=== PATIENT | female | born 1980 | race Caucasian/White ===

== ENCOUNTER → 2019-09-25 17:27 | Outpatient (CLI) | payer BC, SELFPAY ==
--- NOTE | ~2019-09-25 | MM_ITS ---
EXAMINATION: MM screening amita BI w abe HISTORY: Screening mammogram TECHNIQUE: Craniocaudal and mediolateral oblique 3-D tomosynthesis images were obtained and synthetic 2-D images were generated. CAD analysis was submitted and interpreted. COMPARISON: None, baseline BREAST PARENCHYMAL COMPOSITION: The breasts are almost entirely fatty. FINDINGS: RIGHT BREAST: An asymmetry is present in the subareolar aspect of the right breast on the craniocauda l view.. LEFT BREAST: There is no evidence of suspicious mass, calcification, or architectural distortion to s uggest malignancy. IMPRESSION: 1. Subareolar right breast asymmetry on the craniocaudal view. 2. Additional mammographic views and possible breast ultrasound are recommended to evaluate for amy elena and establish a baseline given that this is the first mammographic examination. BI-RADS Category 0: Incomplete: Needs additional imaging evaluation. Reviewed, dictated and finalized at location A. F COINS INSPECTOR IMPRESSION: 1. Subareolar right breast asymmetry on the craniocaudal view. 2. Additional mammographic views and possible breast ultrasound are recommended to evaluate for malignancy and establish a baseline given that this is the fir st mammographic examination. BI-RADS Category 0: Incomplete: Needs additional imaging evaluation.
== END ==
PROVIDERS: Visit Provider Advanced Practice Midwife
DX: Z12.31 Encounter for screening mammogram for malignant neoplasm of breast (principal); R92.8 Other abnormal and inconclusive findings on diagnostic imaging of breast
CPT/HCPCS: 77063; 77067

== ENCOUNTER → 2019-10-23 08:15 | Outpatient (CLI) | payer BC, SELFPAY ==
--- NOTE | ~2019-10-23 | MM_ITS ---
EXAMINATION: MM diagnostic mammo unilat RT HISTORY: Follow-up right breast asymmetry TECHNIQUE: Additional 3-D tomosynthesis images of the right breast were performed and synthetic 2-D i mages were generated. CAD analysis was submitted and interpreted. COMPARISON: 09/25/2019 FINDINGS: Breast composed of scattered areas of fibroglandular density. There are no suspicious talisha s, calcifications or architectural distortion in the right breast to suggest malignancy. IMPRESSION: 1. No mammographic evidence for malignancy in the right breast. 2. Routine digital bilateral screening mammogram submitted for review. CAD analysis performed and in terpreted. BI-RADS Category 1: Negative Reviewed, dictated and finalized at location A. IMPRESSION: 1. No mammographic evidence for malignancy in the right breast. 2. Routine digital bilateral screening mammogram submitted for review. CAD brittney lysis performed and interpreted. BI-RADS Category 1: Negative
== END ==
PROVIDERS: PCP Family Medicine; Visit Provider Advanced Practice Midwife
DX: R92.8 Other abnormal and inconclusive findings on diagnostic imaging of breast (principal)
CPT/HCPCS: 77065

== ENCOUNTER → 2020-12-02 15:20 | Outpatient (CLI) | payer BC, SELFPAY ==
--- NOTE | ~2020-12-02 | MM_ITS ---
EXAMINATION: MM screening amita BI w abe HISTORY: Screening mammogram TECHNIQUE: Craniocaudal and mediolateral oblique 3-D tomosynthesis images were obtained and synthetic 2-D images were generated. CAD analysis was submitted and interpreted. COMPARISON: 10/23/2019 diagnostic right mammogram 09/25/2019 bilateral digital screening mammogram BREAST PARENCHYMAL COMPOSITION: The breasts are almost entirely fatty. FINDINGS: There is no evidence of suspicious mass, calcification, or architectural distortion to sugg est malignancy in either breast. There has been no suspicious interval change. IMPRESSION: 1. No mammographic evidence of malignancy. 2. Recommend routine screening mammography in one year. BI-RADS Category 1: Negative Reviewed, dictated and finalized at location A.
== END ==
PROVIDERS: Visit Provider Nurse Practitioner Obstetrics & Gynecology
DX: Z12.31 Encounter for screening mammogram for malignant neoplasm of breast (principal)
CPT/HCPCS: 77063; 77067

== ENCOUNTER → 2021-06-27 07:17 | Outpatient (CLI) | payer BC, SELFPAY ==
--- NOTE | ~2021-06-27 | MR_ITS ---
EXAMINATION: MR ankle RT wo con DATE: 06/27/2021 08:16 INDICATION: Chronic plantar fasciitis with chronic plantar right foot pain TECHNIQUE: Magnetic resonance imaging (MRI) of the right mid and hindfoot including the ankle was per formed without intravenous contrast. Sequences included sagittal, coronal, and axial proton-density w eighted fast spin echo without and with fat saturation. COMPARISON: None. FINDINGS: Medial ankle ligaments: Deep and superficial deltoid ligaments as well as the spring ligament are normal. Lateral ankle ligaments: The anterior and posterior inferior tibiofibular ligaments are normal. The anterior talofibular, calc aneofibular and posterior talofibular ligaments are normal. Tendons: Achilles tendon is normal. The peroneus longus and brevis tendons are normal. The tibialis anterior a nd extensor hallucis longus and extensor digitorum longus tendons are normal. The tibialis posterior, flexor digitorum longus and flexor hallucis longus tendons are normal. Plantar fascia: There is thickening and mild increased signal at the proximal aspect of the lateral pelvic and more p rominently of the central component of the plantar aponeurosis with mild surrounding soft tissue rachelle a consistent with mild to moderate plantar fasciitis without discrete tear. Bones/other: Bone alignment is normal. Normal marrow signal throughout with no reactive edema, fracture or patholo gic marrow replacing process. Joint spaces are normal. Fluid: Physiologic amount of fluid in the joint spaces. No tenosynovitis, bursitis or other abnormal fluid c ollections. IMPRESSION: 1. Mild to moderate plantar fasciitis without evident tear. Reviewed, dictated and finalized at location A. IELD MANAGER
== END ==
PROVIDERS: Visit Provider Podiatrist Foot & Ankle Surgery
DX: M72.2 Plantar fascial fibromatosis (principal)
CPT/HCPCS: 73721

== ENCOUNTER 2021-08-14 00:59 | Day surgery (SDC) | payer BC, SELFPAY ==
[2021-08-06 14:05] VITALS: BMI 43.8
--- NOTE | 2021-08-06 14:16 | PC.NURSE ---
Report to the Outpatient Waiting Room, entrance under the green pavilion located off [facility], at time 0600 on date 08/14/21. OR Time: 0730. - You will be asked a series of questions to screen for COVID 19 for your protection. - A mask is required within the hospital. - No visitors are allowed at this time. Preoperative COVID Testing Requirements: No COVID Test needed if: (proof is required; if not received patient will have Rapid Test prior to entry) - Patient has received COVID Vaccine at least 14 days prior to procedure date or - Patient has positive COVID test result within last 90 days of surgery date. COVID Test needed if above criteria is not met Patients may have clear liquids (water, carbonated beverages, clear teas, apple juice) until 3 hours prior to surgery with a maximum of 20 ounces. - No food from midnight until time of surgery Take the following medications with a SIP of water the morning of surgery: ESCITALOPRAM, CONTROL PILL Medications to discontinue per physician: N/A Date to take last dose: N/A Please no make-up, nail croatian, hairspray, perfume, deodorant, or body powder the day of surgery. No jewelry (including any body piercings) or valuables the day of surgery, leave them at home. Please take a shower or bath the night before, or the morning of, surgery with an antibacterial soap. Wear comfortable, loose fitting clothing. - Jewelry must be removed prior to entering the operating room. Rings and piercings that are not removed may be cut off. - The hospital will not accept responsibility for valuables. - Please leave all valuables, including medications, at home the day of surgery. If you are going home after surgery, a licensed driver education instructor must drive you home. - NO public transportation without another adult. - We recommend that an adult stay with you for 24 hours following discharge. - We also recommend that you do not drive, make important decision, drink alcoholic beverages, or take any drugs that were not prescribed by your health care provider for at least 24 hours after your discharge time. Follow any additional instructions given to you from your surgeon. Telephone instructions given to BELIA PALACIOS and asked if any additional questions and then verbalized understanding. Patient advised to call surgeon office or pre surgery nurse liaison [phone] if any additional questions.
[2021-08-14 06:16] VITALS: BP 110/73; PULSE 82; RESP 18; TEMP 36.6; O2SAT 99
[2021-08-14] MEDS: LACTATED RINGERS 1,000 ML 30 ML IV CONT (06:30)
--- NOTE | 2021-08-14 07:00 | WPDANESEPPF ---
Anes - Initial Pre Proc Eval Procedure: Operation Date: 08/14/21 07:30 Proposed Procedures p Partial Plantar Fasciectomy Right Foot - Augustine Gilmore JR, MD Date/Time: 08/14/21 07:00 Surgeon: Augustine Gilmore JR, MD Pre Op Diagnosis: plantar fasciitis right foot Patient Data Age: 40 Gender: F Height: 1.7 m Weight: 123.1 kg Last Vital Signs Temp 36.6 C 08/14/21 06:16 Pulse 82 08/14/21 06:16 Resp 18 08/14/21 06:16 BP 110/73 08/14/21 06:16 Pulse Ox 99 08/14/21 06:16 Allergies Allergy/AdvReac Type Severity Reaction Status Date / Time promethazine Allergy Mild rash and Verified 08/14/21 06:37 vomiting Home Medications Medication Instructions Recorded Confirmed Type l.norgest-eth.estradiol triphasic 1 tablet PO DAILY 02/26/20 08/14/21 History 50-30 (6)/75-40(5)/125-30(10) tablet escitalopram oxalate 10 mg tablet 10 mg PO DAILY #90 tablet 05/06/21 08/14/21 Rx Patient hx anesthesia problems: other (motion sickness) Family hx anesthesia problems: none Results Review: All pre-operative results and documents have been reviewed as part of the pre-operative evaluation. [facility] Past Medical History Medical History Anxiety Depression Surgical History Surgical History History of tonsillectomy Family History Family History Father Family history of hypercholesterolemia Hypertension Patient's father is in good health Family history of arthritis Melanoma Sibling Hypertension Patient's sister is in good health Mother Patient's mother is in good health Social History Social History Social History: Smoking status: Never smoker Second hand tobacco smoke exposure: No Alcohol intake: current Drinks per week: 10 Substance use: never Substance use type: does not use Living arrangements: with family Gender identity (if verbalized by the patient): Female Sexual Orientation (if Verbalized by the Patient): Straight or Heterosexual Spiritual care concerns: No Anes - Eval Final PreProcedure Day of Procedure 08/14/21 07:00 Patient weight: morbidly obese Heart: regular rate and rhythm Lungs: clear to auscultation Airway: Mallampati scale class 1 Neurological: alert and oriented Last oral intake: >/= 8 hours ASA classification: III Emergent: no Anesthetic plan: proceed Anesthesia type and monitoring: general LMA and standard monitoring Results Review: All pre-operative results and documents have been reviewed as part of the pre-operative evaluation. Informed Consent: The patient's anesthetic plan and its attendant risks and benefits were discussed with the patient/family/POA. Questions were solicited and answers provided to the satisfaction of the patient/family/POA.
--- NOTE | 2021-08-14 07:08 | WPDHPUPDATE1 ---
History and Physical Update Update Date/Time: 08/14/21 07:08 History and Physical has been reviewed, including an updated exam of the patient. There are NO changes in the patient's condition. Risks, benefits, and alternatives have been discussed and questions answered. Patient agrees to proceed with procedure.
[2021-08-14] MEDS: ceFAZolin 2 GM/D5W 50 ML 2 GM/50 ML BAG IVPB (07:22)
[2021-08-14] MEDS: LIDOCAINE HCL 2% PF INJ 5 ML VIAL 10 ML INFILTRATE (07:31)
--- NOTE | 2021-08-14 08:13 | P.OP_ITS ---
Procedure Note - Detailed Date of Procedure 08/14/21 Pre-op Diagnosis plantar fasciitis right foot Post-op Diagnosis same Procedure Performed Partial plantar fasciectomy right foot Surgeon Augustine Gilmore JR, RAJWINDERM Anesthesia MAC and local Description of Procedure Under mild sedation, the patient was brought in to the operating room, placed on the operating table in the supine position. A pneumatic ankle tourniquet was placed about the patient's ankle. Following general anesthesia, local anesthesia was obtained about the affected lower extremity utilizing 20 mL of a one to mix of 2% Lidocaine plain and 0.5% Marcaine plain to the tibial nerve. The foot was then scrubbed, prepped, and draped in the usual aseptic manner. An Esmarch bandage was then used to exsanguinate the patient's foot and the pneumatic ankle tourniquet was then inflated. Next, an incision was made starting distal to the medial tubercle of the calcaneus extending distally 3cm. All bleeders were cauterized as necessary. Next the dissection was continued down to the plantar fascia it was exposed medially and laterally with [employer] retractors. Two thirds of the medial plantar fascia was transected and a 4mm portion was also cut and sent for gross and histopathology. The wound site was flushed with sterile saline. The deep s ubcutaneous tissue was reapproximated with 3.0 Vicryl and the skin was reapproximated with 2.0 Prolene and 3.0 Prolene in Vertical mattress and Simple interrupted suture technique. Upon completion of the procedure, the plantar incision was dressed with adaptic, 4x4 gauze, Kerlix and Coban. The pneumatic ankle tourniquet was then deflated and a prompt hyperemic response was noted to all digits of the affected foot. A CAM Walker boot was then applied. The patient did very well with the procedure and the anesthesia. The patient was transferred to the recovery room with vital signs stable and vascular status intact to all toes of the affected foot. Following a period of postoperative monitoring, the patient will be discharged home on the following written and oral postoperative instructions: 1. The patient should keep the dressing clean, dry, and intact. Use a cast protector bag with showers. 2. The patient will be strictly protected weight bearing with CAM walker boot. 3. Patient should ice and elevate the affected foot when at rest. 4. The patient is to contact Dr. Gilmore for all postop care and if any problems arise. 5. Prescriptions were written for Percocet 5/325 dispensed 40 to be taken 1 p.o. q.4-6 hours as needed for severe pain. Estimated Blood Loss 1 Drains No Packing No Pathology yes (A portion of the proximal plantar fascia was sent for gross and histopatholgy) Complications No immediate complications Condition stable Disposition same day
[2021-08-14 08:16] VITALS: BP 109/65; PULSE 65; RESP 16; O2SAT 96
[2021-08-14 08:30] VITALS: BP 140/73; PULSE 74; RESP 16; O2SAT 98
[2021-08-14] MEDS: oxyCODONE HCL (*CRX) 5 MG TAB IR PO (08:44)
[2021-08-14 09:00] VITALS: BP 133/82; PULSE 54
== END 2021-08-14 09:28 | disposition home or self-care (01) ==
PROVIDERS: PCP Family Medicine; Visit Provider Podiatrist Foot & Ankle Surgery
PROC: (CPT 28119; principal; 2021-08-14 07:30)
DX: M72.2 Plantar fascial fibromatosis (principal); F41.8 Other specified anxiety disorders; E66.01 Morbid (severe) obesity due to excess calories; Z68.41 Body mass index [BMI] 40.0-44.9, adult
CPT/HCPCS: 28060; 88304; A9270; C9290; J0690; J2250; J2704; J3010; J7120

== ENCOUNTER → 2021-12-04 14:53 | Outpatient (CLI) | payer BC, SELFPAY ==
--- NOTE | ~2021-12-04 | MM_ITS ---
EXAMINATION: MM screening amita BI w abe HISTORY: Screening mammogram TECHNIQUE: Craniocaudal and mediolateral oblique 3-D tomosynthesis images were obtained and synthetic 2-D images were generated. CAD analysis was submitted and interpreted. COMPARISON: September 25, 2019, December 02, 2020 bilateral screening mammogram examinations October 23, 2019 diagnostic right mammogram BREAST PARENCHYMAL COMPOSITION: The breasts are almost entirely fatty. FINDINGS: There is no evidence of suspicious mass, calcification, or architectural distortion to sugg est malignancy in either breast. There has been no suspicious interval change. IMPRESSION: 1. No mammographic evidence of malignancy. 2. Recommend routine screening mammography in one year. BI-RADS Category 1: Negative Reviewed, dictated and finalized at location A.
== END ==
PROVIDERS: PCP Family Medicine; Visit Provider Nurse Practitioner Obstetrics & Gynecology
DX: Z12.31 Encounter for screening mammogram for malignant neoplasm of breast (principal)
CPT/HCPCS: 77063; 77067

== ENCOUNTER 2022-09-27 14:26 | Outpatient (CLI) | payer BC, SELFPAY ==
[2022-09-27 14:39] LABS: Basophils Absolute Auto 0.1 K/mm3 (0.0-0.1); Basophils Percent Auto 0.6 % (0.2-1.2); Eosinophils Absolute Auto 0.4 K/mm3 (0-0.3); Eosinophils Percent Auto 3.1 % (0-4.4); Hematocrit 41.5 % (37.0-47.0); Hemoglobin 13.1 g/dL (12.0-15.0); Immature Granulocyte Percent A 0.9 % (0-0.5); Lymphocytes Absolute Auto 3.26 K/mm3 (0.9-3.2); Lymphocytes Percent Auto 27.8 % (18.3-44.2); Mean Corpuscular HGB Conc 31.6 g/dl (32-36); Mean Corpuscular Hemoglobin 29.1 pg (26-34); Mean Corpuscular Volume 92.2 fl (80-100); Mean Platelet Volume 10.1 fl (7.4-10.4); Monocytes Absolute Auto 0.8 K/mm3 (0.1-0.6); Monocytes Percent Auto 6.7 % (2.6-8.5); Neutrophils Absolute Auto 7.2 K/mm3 (1.3-6.7); Neutrophils Percent Auto 60.9 % (45.5-73.1); Platelet Count Result 352 k/mm3 (150-375); Red Cell Distribution Width 12.8 % (11.5-14.5); White Blood Count 11.7 K/mm3 (4.5-10.0)
[2022-09-27 16:31] LABS: CRP 2.9 mg/dL (<1.0)
[2022-09-27 17:27] LABS: Erythrocyte Sedimentation Rate 13 mm/hr (0-20)
== END 2022-09-27 14:27 | disposition home or self-care (01) ==
LOC: ANHLAB 14:27
PROVIDERS: PCP Family Medicine; Visit Provider Internal Medicine Hematology & Oncology
DX: D72.829 Elevated white blood cell count, unspecified (principal)
CPT/HCPCS: 36415; 85025; 85652; 86140; 88184

== ENCOUNTER → 2023-01-07 10:02 | Outpatient (CLI) | payer BC, SELFPAY ==
--- NOTE | ~2023-01-07 | MM_ITS ---
EXAMINATION: MM screening [facility] BI w abe HISTORY: Screening mammogram TECHNIQUE: Craniocaudal and mediolateral oblique 3-D tomosynthesis images were obtained and synthetic 2-D images were generated. CAD analysis was submitted and interpreted. COMPARISON: December 04, 2021, December 02, 2020 bilateral screening mammogram examinations BREAST PARENCHYMAL COMPOSITION: The breasts are almost entirely fatty. FINDINGS: Right breast: Possible small masses in the mid and outer right breast on craniocaudal and mediolatera l oblique views. Diagnostic right mammogram is recommended, with ultrasound if required. Left breast: There is no evidence of suspicious mass, calcification, or architectural distortion to s uggest malignancy in the left breast. There has been no suspicious interval change. IMPRESSION: 1. Possible small right breast masses. 2. Diagnostic right mammogram and right breast ultrasound examination is recommended BI-RADS Category 0: Incomplete: Needs additional imaging evaluation. Reviewed, dictated and finalized at location A. IMPRESSION: 1. Possible small right breast masses. 2. Diagnostic right mammogram and right breast ultrasound examination is recomm ended BI-RADS Category 0: Incomplete: Needs additional imaging evaluation.
== END ==
PROVIDERS: PCP Nurse Practitioner Obstetrics & Gynecology; Visit Provider Nurse Practitioner Obstetrics & Gynecology
DX: Z12.31 Encounter for screening mammogram for malignant neoplasm of breast (principal)
CPT/HCPCS: 77063; 77067

== ENCOUNTER → 2023-02-11 07:43 | Outpatient (CLI) | payer BC, SELFPAY ==
--- NOTE | ~2023-02-11 | MMUS_ITS ---
EXAMINATION: MM diagnostic amita RT w abe, US breast RT limited HISTORY: Possible right breast masses on screening mammogram TECHNIQUE: Additional 3-D tomosynthesis images of the right breast were performed and synthetic 2-D i mages were generated. CAD analysis was submitted and interpreted. High resolution limited right breas t ultrasound was performed. COMPARISON: 01/07/2023, 12/04/2021, 12/02/2020, 10/23/2019 BREAST PARENCHYMAL COMPOSITION: The breasts are almost entirely fatty. FINDINGS: MAMMOGRAPHIC FINDINGS: There is a 6 mm oval, obscured, equal density mass in the anterior third of the lower inner breast at the 4:00 location 5 cm from the nipple. No suspicious calcification or architectural distortion are identified. ULTRASOUND: There are two adjacent cysts, measuring 6 mm in combined dimension, at the 5:00 location 2 cm from th e nipple corresponding to the mammographic finding in question. No suspicious cystic or solid mass is identified. IMPRESSION: 1. No mammographic or sonographic evidence of malignancy. 2. Recommend routine screening mammography in one year. BI-RADS Category 2: Benign finding(s). Reviewed, dictated and finalized at location A. IMPRESSION: 1. No mammographic or sonographic evidence of malignancy. 2. Recommend routine screening mammography in one year. BI-RADS Category 2: Benign finding(s).
== END ==
PROVIDERS: PCP Nurse Practitioner Obstetrics & Gynecology; Visit Provider Nurse Practitioner Obstetrics & Gynecology
DX: R92.8 Other abnormal and inconclusive findings on diagnostic imaging of breast (principal)
CPT/HCPCS: 76642; 77061; 77065; G0279

== ENCOUNTER → 2023-03-15 08:59 | Outpatient (CLI) | payer BC, SELFPAY ==
--- NOTE | ~2023-03-15 | XR_ITS ---
EXAMINATION: XR finger 1st RT min 2V DATE: 03/15/2023 09:09 INDICATION: Pain at the right thumb TECHNIQUE: Dorsal palmar, lateral and 2 oblique views of the right first digit were obtained COMPARISON: None FINDINGS: Alignment is normal. No fracture. Mild osteoarthritis at the first metacarpophalangeal and interphala ngeal joints. No erosions to suggest inflammatory arthritis. Soft tissues are unremarkable. IMPRESSION: 1. 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 Reviewed, dictated and finalized at location L. IMPRESSION: 1. 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
== END ==
PROVIDERS: PCP Family Medicine; Visit Provider Family Medicine
DX: M79.644 Pain in right finger(s) (principal); M19.041 Primary osteoarthritis, right hand
CPT/HCPCS: 73140

== ENCOUNTER 2023-05-16 15:39 | Outpatient (CLI) | payer BC, SELFPAY ==
[2023-05-16 15:49] LABS: Basophils Absolute Auto 0.1 K/mm3 (0.0-0.1); Basophils Percent Auto 0.7 % (0.2-1.2); Eosinophils Absolute Auto 0.2 K/mm3 (0-0.3); Eosinophils Percent Auto 1.7 % (0-4.4); Hematocrit 39.1 % (37.0-47.0); Hemoglobin 12.5 g/dL (12.0-15.0); Immature Granulocyte Absolute 0.05 K/mm3 (0.00-0.031); Immature Granulocyte Percent A 0.4 % (0-0.5); Lymphocytes Absolute Auto 4.73 K/mm3 (0.9-3.2); Lymphocytes Percent Auto 38.9 % (18.3-44.2); Mean Corpuscular Hemoglobin 30.4 pg (26-34); Mean Corpuscular Volume 95.1 fl (80-100); Mean Platelet Volume 10.2 fl (7.4-10.4); Monocytes Absolute Auto 0.8 K/mm3 (0.1-0.6); Monocytes Percent Auto 6.5 % (2.6-8.5); Neutrophils Absolute Auto 6.3 K/mm3 (1.3-6.7); Neutrophils Percent Auto 51.8 % (45.5-73.1); Platelet Count Result 310 k/mm3 (150-375); Red Blood Count 4.11 M/mm3 (4.2-5.4); Red Cell Distribution Width 12.3 % (11.5-14.5); White Blood Count 12.2 K/mm3 (4.5-10.0)
== END 2023-05-16 15:40 | disposition home or self-care (01) ==
LOC: ANHLAB 15:41
PROVIDERS: PCP Family Medicine; Visit Provider Internal Medicine Hematology & Oncology
DX: D72.829 Elevated white blood cell count, unspecified (principal)
CPT/HCPCS: 36415; 85025

== ENCOUNTER 2023-12-30 03:06 | Day surgery (SDC) | payer BC, SELFPAY ==
[2023-12-22 17:10] VITALS: BMI 46.2
--- NOTE | 2023-12-22 17:33 | SUR.PREOP ---
Report to the Outpatient Waiting Room, entrance under the green pavilion located off [facility], at time 0600 on date 12/30/23. Planned Procedure Time: 0730. Time changes happen often and if your time is changed the preop area will call you the afternoon before. - You and your visitor will be asked to self-screen and do not enter if you have any COVID symptoms. - A mask is optional within the hospital at this time. Patients may have clear liquids (water, carbonated beverages, clear teas, apple juice) until 3 hours prior to surgery with a maximum of 20 ounces. - No food from midnight until time of surgery 20 OUNCES BEFORE 0430 AM - Infants may have breast milk until 4 hours before surgery, infant formula 6 hours prior to surgery. - Children will be allowed to drink immediately following surgery. If applicable, please bring a bottle or sippy cup to assist with drinking. Juice, water, soda, and popsicles are readily available. For infants on formula, please bring formula the day of surgery. Pacifiers are allowed. Take the following medications with a SIP of water the morning of surgery: __ESCITALOPRAM DO NOT STOP ANY OF YOUR OTHER PRESCRIPTION MEDICATIONS PRIOR TO SURGERY ?EXCEPT THE FOLLOWING Medications to discontinue per physician ___VITAMINS AND SUPPLEMENTS 3 DAYS PRIOR TO PROCEDURE, FOLIC ACID, OMEPRAZOLE AND INDOMETHACIN DAY OF PROCEDURE Date to take last dose Please no make-up, nail st helenian, hairspray, perfume, deodorant, or body powder the day of surgery. No jewelry (including any body piercings) or valuables the day of surgery, leave them at home. Please take a shower or bath the night before, or the morning of, surgery with an antibacterial soap. Wear comfortable, loose fitting clothing. Children are encouraged to wear pajamas. - Jewelry must be removed prior to entering the operating room. Rings and piercings that are not removed may be cut off. - The hospital will not accept responsibility for valuables. - Please leave all valuables, including medications, at home the day of surgery. If you are going home after surgery, a licensed hack driver must drive you home. - NO public transportation without another adult if you receive anesthesia. - We recommend that an adult stay with you for 24 hours following discharge. - We also recommend that you do not drive, make important decision, drink alcoholic beverages, or take any drugs that were not prescribed by your health care provider for at least 24 hours after your discharge time. For Pediatric surgeries, we recommend two adults accompany the child home. Follow any additional instructions given to you from your surgeon. If you or anyone in your household have experienced Covid symptoms in the past week, please notify your surgeon or the nurse liaison at the phone number below for possible testing. Telephone instructions given to patient and asked if any additional questions and then verbalized understanding. Patient advised to call surgeon office or pre surgery nurse liaison [phone] if any additional questions.
[2023-12-30] VITALS (8 sets, daily range): BP systolic 117–153; BP diastolic 68–103; PULSE 72–95; RESP 12–20; TEMP 36.5–36.7; O2SAT 95–100
[2023-12-30] MEDS: LACTATED RINGERS 1,000 ML 30 ML IV CONT (06:45)
[2023-12-30] MEDS: ACETAMINOPHEN 500 MG TABLET 1000 MG PO (06:47)
[2023-12-30] MEDS: KETOROLAC 15 MG/ML VIAL (*BKC) IV PUSH (06:47)
--- NOTE | 2023-12-30 06:53 | WPDANESEPPF ---
Anes - Initial Pre Proc Eval Procedure: Operation Date: 12/30/23 07:30 Proposed Procedures p Laparoscopic Bilateral Tubal Ligation - Donte Hou MD s Hysteroscopy with Tamia Endometrial Ablation - Donte Hou MD Date/Time: 12/30/23 06:53 Surgeon: Donte Hou MD Pre Op Diagnosis: Abnormal Uterine Bleeding Patient Data Age: 43 Gender: F Height: 1.7 m Weight: 133.81 kg Allergies Allergy/AdvReac Type Severity Reaction Status Date / Time promethazine Allergy Mild rash and Verified 12/30/23 06:57 vomiting Home Medications Medication Instructions Recorded Confirmed Type l.norgest-eth.estradiol triphasic 1 tablet PO HS 02/26/20 12/30/23 History 50-30 (6)/75-40(5)/125-30(10) tablet (Enpresse) cyclobenzaprine 5 mg tablet 5 mg PO HS 03/15/23 12/30/23 History escitalopram oxalate 20 mg tablet 20 mg PO DAILY #90 tabs 05/18/23 12/30/23 Rx (Lexapro) Daily Multivitamin 1 tablet PO DAILY 12/22/23 12/30/23 History folic acid 1 mg tablet 1 mg PO DAILY 12/22/23 12/30/23 History indomethacin 75 mg 75 mg PO BID 12/22/23 12/30/23 History capsule,extended release methotrexate sodium 2.5 mg tablet 2.5 mg PO WEEKLY 12/22/23 12/30/23 History omeprazole 40 mg capsule,delayed 40 mg PO DAILY 12/22/23 12/30/23 History release tramadol 50 mg tablet 50 mg PO DAILY PRN Pain 12/22/23 12/30/23 History Patient hx anesthesia problems: none Family hx anesthesia problems: none Results Review: All pre-operative results and documents have been reviewed as part of the pre-operative evaluation. [facility] Past Medical History Medical History Ankylosing spondylitis Anxiety Depression Surgical History Surgical History History of tonsillectomy Family History Family History Father Family history of hypercholesterolemia Hypertension Patient's father is in good health Family history of arthritis Melanoma Sibling Hypertension Patient's sister is in good health Mother Patient's mother is in good health Social History Social History Social History: Smoking status: Never smoker Second hand tobacco smoke exposure: No Alcohol intake: current Drinks per week: 10 Substance use: never Substance use type: does not use Living arrangements: with family Occupation/Education: occupation Gender identity (if verbalized by the patient): Female Sexual Orientation (if Verbalized by the Patient): Straight or Heterosexual Spiritual care concerns: No Anes - Eval Final PreProcedure Day of Procedure 12/30/23 06:53 Patient weight: morbidly obese Heart: regular rate and rhythm Lungs: clear to auscultation Airway: Mallampati scale class II Neurological: alert and oriented Last oral intake: >/= 8 hours ASA classification: III Emergent: no Anesthetic plan: proceed Anesthesia type and monitoring: general ETT and standard monitoring Results Review: All pre-operative results and documents have been reviewed as part of the pre-operative evaluation. Diet controlled hyperlipidemia, ankylosying spondylitis, morbid obestiy. Informed Consent: The patient's anesthetic plan and its attendant risks and benefits were discussed with the patient/family/POA. Questions were solicited and answers provided to the satisfaction of the patient/family/POA.
--- NOTE | 2023-12-30 08:05 | PM.IMHP ---
H&P: HPI History of Present Illness Date/Time: 12/30/23 08:05 Chief Complaint: AUB, desires sterilization Narrative: Patient is a 43 year old who presents for laparoscopic tubal ligation and endometrial ablation indicated for abnormal uterine bleeding. She has tried multiple medications to control the bleeding however she has not had success. Endometrial biopsy was performed in the office and was negative for malignancy or hyperplasia. Discussed expectant management, other medical management options or surgical management. She desires surgical management of bleeding with endometrial ablation as well as permanent sterilization with laparoscopic bilateral salpingectomy. risks, benefits, and alternatives to the surgery were discussed again today. She denies headaches, abdominal pain, nausea. vomiting, or dysuria. Review of Systems Review of Systems: All systems reviewed & are unremarkable except as noted in HPI and below PMFSH Past Medical History Medical History Ankylosing spondylitis Anxiety Depression Surgical History Surgical History History of tonsillectomy Family History Family History Father Family history of hypercholesterolemia Hypertension Patient's father is in good health Family history of arthritis Melanoma Sibling Hypertension Patient's sister is in good health Mother Patient's mother is in good health Social History Social History Social History: Smoking status: Never smoker Second hand tobacco smoke exposure: No Alcohol intake: current Drinks per week: 10 Substance use: never Substance use type: does not use Living arrangements: with family Occupation/Education: occupation Gender identity (if verbalized by the patient): Female Sexual Orientation (if Verbalized by the Patient): Straight or Heterosexual Spiritual care concerns: No Meds Home Medications and Allergies Home Medications Medication Instructions Recorded Confirmed Type l.norgest-eth.estradiol triphasic 1 tablet PO HS 02/26/20 12/30/23 History 50-30 (6)/75-40(5)/125-30(10) tablet (Enpresse) cyclobenzaprine 5 mg tablet 5 mg PO HS 03/15/23 12/30/23 History escitalopram oxalate 20 mg tablet 20 mg PO DAILY #90 tabs 05/18/23 12/30/23 Rx (Lexapro) Daily Multivitamin 1 tablet PO DAILY 12/22/23 12/30/23 History folic acid 1 mg tablet 1 mg PO DAILY 12/22/23 12/30/23 History indomethacin 75 mg 75 mg PO BID 12/22/23 12/30/23 History capsule,extended release methotrexate sodium 2.5 mg tablet 2.5 mg PO WEEKLY 12/22/23 12/30/23 History omeprazole 40 mg capsule,delayed 40 mg PO DAILY 12/22/23 12/30/23 History release tramadol 50 mg tablet 50 mg PO DAILY PRN Pain 12/22/23 12/30/23 History Allergies Allergy/AdvReac Type Severity Reaction Status Date / Time promethazine Allergy Mild rash and Verified 12/30/23 06:57 vomiting Vital Signs Vital Signs - 24 hr 12/30/23 06:26 Temperature 97.7 F Pulse Rate 85 Respiratory Rate 18 Blood Pressure 153/86 H Pulse Oximetry 97 Oxygen Delivery Room Air Exam Const: General: comfortable and no acute distress HENMT: Mouth: Yes moist mucous membranes Eyes: General: appearance normal, both eyes and all related structures Resp: Effort & Inspection: normal respiratory effort Cardio: Rate: regular rate Rhythm: regular rhythm Skin: General skin exam: normal color Extrem: General: normal to inspection Psych: Mental Status: mental status grossly normal Assessment and Plan Assessment and plan (1) Abnormal uterine bleeding: Code(s): N93.9 - Abnormal uterine and vaginal bleeding, unspecified Status: Acute Assessment and Plan: - failed multiple medical management options - EMB in office negati
--- NOTE | 2023-12-30 08:10 | WPDHPUPDATE1 ---
History and Physical Update Update Date/Time: 12/30/23 08:10 History and Physical has been reviewed, including an updated exam of the patient. There are NO changes in the patient's condition. Risks, benefits, and alternatives have been discussed and questions answered. Patient agrees to proceed with procedure.
[2023-12-30] MEDS: LIDO 1%/EPINEPHRINE 1:100,000 20 ML VIAL 10 ML INFILTRATE (09:27)
[2023-12-30] MEDS: ONDANSETRON INJ 4 MG/2 ML VIAL IV PUSH (09:59)
--- NOTE | 2023-12-30 10:09 | W.PM.PROC2 ---
Procedure Note - Detailed Date of Procedure 12/30/23 Pre-op Diagnosis Abnormal Uterine Bleeding and desires sterilization Post-op Diagnosis Same Procedure Performed Laparoscopic bilateral salpingectomy and hysteroscopy, aborted endometrial ablation 2/2 uterine perforation Surgeon Donte Hou MD Anesthesia General Indications Abnormal uterine bleeding, failed medical management Findings Normal appearing fallopian tubes bilaterally, normal appearing uterus at start of procedure; small functional cyst of left ovary; normal appearing endometrial cavity with both tubal ostia visualized; after perforation noted, small 5mm perforation in the uterine fundus that was hemostatic Description of Procedure The patient was taken to the operating room with IVFs running. She was placed into the dorsal supine position where she received general endotracheal anesthesia without difficulty. The patient was then placed in a dorsal lithotomy position, using Gavin stirrups. Patient was then prepped and draped in the normal sterile fashion. A time-out procedure was performed and the OR team agreed on the patient and procedure. The bladder was drained under sterile technique, draining clear urine. A bivalve speculum was inserted into the vagina. The anterior lip of the cervix was grasped with a single tooth tenaculum. An acorn manipulator was then inserted into the cervix and attached to the tenaculum. The speculum was then removed. Gloves were then changed. Attention was turned to the patient's abdomen where the infraumbilical fold was incised with a scalpel, making a 5 mm vertical incision. While tenting the patient's abdomen the hysteroscope was inserted into the peritoneal cavity using the optiview trocar. Intraperitoneal placement was confirmed visually and with an opening pressure of 7 mm Hg. CO2 gas was then insufflated to achieve an intraperitoneal pressure of 15 mm Hg. Underlying organs were inspected and found to be free of injury. The patient's pelvis was examined and the above listed findings noted. Two 5mm skin incisions were made on the left upper and left lower quadrants. Bladeless trocars were inserted into each incision under direct visualization. Using the Ligasure device, the left tube was detached from the mesosalpinx to the level of the cornua. Hemostasis was assured. A similar procedure was done on the right. Both tubes were removed through the left lower port. The secondary trocars were then removed from the patient's abdomen. The pneumoperitoneum was expelled. Attention was then turned to the vagina for the endometrial ablation. A bivalved speculum was then inserted into the patient's vagina.?A paracervical block of 1% lidocaine with epinephrine was injected. The cervical os was dilated using saroj dilators.? The uterus was sounded to 9.5cm.? At this point, the hysteroscope was then inserted into the uterine cavity. Saline was used as the distension medium. The above findings were noted. Both tubal ostia were visualized.? The hysteroscope was then removed. The cervical length was then measured using the dilator and measured cm.? The cervix was further dilated to accommodate the Tamia device. The Tamia device was then opened and the uterine cavity length set at 5.5 cm.? The device was deployed, the mesh examined, and then reinserted into the sheath.? The device was then inserted into the uterine cavity, however perforation was suspected as the device advanced much farther than expected.? The cavity assessment was attempted but seal could not be obtained. The device was removed. Gloves were changed and the laparoscope was reinserted into the abdomen with insufflation. A 5mm fundal uterine perforation was found. The site was hemostatic and not close to any other structures. Insufflation was decreased to ensure hemostasis without intraabdominal pressure. Once hemostasis was assured, the gas was removed, followed by the trocars. The skin incisions were closed with 4
--- NOTE | 2023-12-30 10:25 | SUR.PHASEI ---
1025 - dr. bansal at bedside talking with patient
== END 2023-12-30 11:45 | disposition home or self-care (01) ==
PROVIDERS: PCP Family Medicine; Visit Provider Obstetrics & Gynecology
PROC: (CPT 58671; principal; 2023-12-30 07:30)
PROC: 0U5B8ZZ Destruction of Endometrium, Via Natural or Artificial Opening Endoscopic (ICD-10-PCS; CPT 58563; 2023-12-30 07:30)
DX: Z30.2 Encounter for sterilization (principal); N83.202 Unspecified ovarian cyst, left side; F41.9 Anxiety disorder, unspecified; F32.A Depression, unspecified; E66.01 Morbid (severe) obesity due to excess calories; Z68.42 Body mass index [BMI] 45.0-49.9, adult; Z79.891 Long term (current) use of opiate analgesic; Z98.890 Other specified postprocedural states; Z80.8 Family history of malignant neoplasm of other organs or systems; N99.71 Accidental puncture and laceration of a genitourinary system organ or structure during a genitourinary system procedure; Z53.09 Procedure and treatment not carried out because of other contraindication
CPT/HCPCS: 58661; 58563; 88302; A9270; J1885; J2250; J2405; J3010; J7030; J7120

== ENCOUNTER 2024-04-16 00:48 | Day surgery (SDC) | payer BC, SELFPAY ==
[2024-04-10 12:55] VITALS: BMI 44.6
--- NOTE | 2024-04-10 13:01 | PC.NURSE ---
Report to the Outpatient Waiting Room, entrance under the green pavilion located off [facility], at time _0700_ on date _[id number]_. Planned Procedure Time: _0900_.? Time changes happen often and if your time is changed the preop area will call you the afternoon before. - You and your visitor will be asked to self-screen and do not enter if you have any COVID symptoms. Please call surgeon if you need to reschedule. - A mask is optional within the hospital at this time. Patients may have clear liquids (water, carbonated beverages, clear teas, apple juice) until 3 hours prior to surgery with a maximum of 20 ounces. - No food from midnight until time of surgery and no smoking Take only the following medications with a SIP of water on the morning of surgery: ___Cefdinir, Escitalopram and Norethindrone DO NOT STOP ANY OF YOUR OTHER PRESCRIPTION MEDICATIONS PRIOR TO SURGERY EXCEPT THE FOLLOWING Medications to discontinue per physician ___Multivitamin, Magnesium and folic acid____ Date to take last hnfm___[id number] Please no make-up, nail guyanese, hairspray, perfume, deodorant, or body powder the day of surgery.? No jewelry (including any body piercings) or valuables the day of surgery, leave them at home.? Please take a shower or bath the night before, or the morning of, surgery with an antibacterial soap.? Wear comfortable, loose fitting clothing.? - Jewelry must be removed prior to entering the operating room.? Rings and piercings that are not removed may be cut off. - The hospital will not accept responsibility for valuables.? - Please leave all valuables, including medications, at home the day of surgery. If you are going home after surgery, a licensed cdl dedicated truck driver must drive you home.? - NO public transportation without another adult if you receive anesthesia. - We recommend that an adult stay with you for 24 hours following discharge. - We also recommend that you do not drive, make important decision, drink alcoholic beverages, or take any drugs that were not prescribed by your health care provider for at least 24 hours after your discharge time. Follow any additional instructions given to you from your surgeon. Telephone instructions given to __Evelin__and asked if any additional questions and then verbalized understanding. Patient advised to call surgeon office or pre surgery nurse liaison [phone] if any additional questions.
--- NOTE | 2024-04-16 07:26 | PM.IMHP ---
H&P: HPI History of Present Illness Date/Time: 04/16/24 07:26 Chief Complaint: menorrhagia Narrative: Patient is a 43 year old female who presents for endometrial ablation. She has tried multiple medications to control the bleeding however she has not had success. Endometrial biopsy was performed in the office and was negative for malignancy or hyperplasia. Discussed expectant management, other medical management options or surgical management. She desires surgical management of bleeding with endometrial ablation. risks, benefits, and alternatives to the surgery were discussed again today. She denies headaches, abdominal pain, nausea. vomiting, or dysuria. Review of Systems Review of Systems: All systems reviewed & are unremarkable except as noted in HPI and below PMFSH Past Medical History Medical History Ankylosing spondylitis Anxiety Depression Surgical History Surgical History History of tonsillectomy Family History Family History Father Family history of hypercholesterolemia Hypertension Patient's father is in good health Family history of arthritis Melanoma Sibling Hypertension Patient's sister is in good health Mother Patient's mother is in good health Social History Social History Social History: Smoking status: Never smoker Second hand tobacco smoke exposure: No Alcohol intake: current Drinks per week: 6 Substance use: never Substance use type: does not use Living arrangements: with family Occupation/Education: occupation Gender identity (if verbalized by the patient): Female Sexual Orientation (if Verbalized by the Patient): Straight or Heterosexual Spiritual care concerns: No Meds Home Medications and Allergies Home Medications Medication Instructions Recorded Confirmed Type Daily Multivitamin 1 tablet PO DAILY 12/22/23 04/10/24 History indomethacin 75 mg 75 mg PO BID 12/22/23 04/10/24 History capsule,extended release tramadol 50 mg tablet 50 mg PO DAILY PRN Pain 12/22/23 04/10/24 History escitalopram oxalate 20 mg tablet 20 mg PO DAILY #90 tabs 02/27/24 04/10/24 Rx (Lexapro) cyclobenzaprine 5 mg tablet 5 mg PO TID PRN Spasms 03/19/24 04/10/24 History cefdinir 300 mg capsule 300 mg PO Q12H 7 days #14 caps 04/10/24 04/10/24 Rx folic acid 1 mg tablet 1 mg PO DAILY 04/10/24 04/10/24 History magnesium 250 mg tablet 250 mg PO BID 04/10/24 04/10/24 History methotrexate sodium 2.5 mg tablet 2.5 mg PO WEEKLY 04/10/24 04/10/24 History norethindrone acetate 5 mg tablet 5 mg PO DAILY 04/10/24 04/10/24 History sulfasalazine 500 mg 1,500 mg PO DAILY 04/10/24 04/10/24 History tablet,delayed release Allergies Allergy/AdvReac Type Severity Reaction Status Date / Time promethazine Allergy Mild rash and Verified 04/10/24 12:51 vomiting Exam Const: General: comfortable and no acute distress HENMT: Mouth: Yes moist mucous membranes Resp: Effort & Inspection: normal respiratory effort Cardio: Rate: regular rate Extrem: General: normal to inspection Psych: Mental Status: mental status grossly normal Assessment and Plan Assessment and plan (1) Abnormal uterine bleeding: Code(s): N93.9 - Abnormal uterine and vaginal bleeding, unspecified Status: Acute Assessment and Plan: - refractory to medical management - EMB normal in office - patient desires surgical management with endometrial ablation - risks and benefits of the procedure discussed - will proceed with endometrial ablation
--- NOTE | 2024-04-16 07:28 | WPDHPUPDATE1 ---
History and Physical Update Update Date/Time: 04/16/24 07:28 History and Physical has been reviewed, including an updated exam of the patient. There are NO changes in the patient's condition. Risks, benefits, and alternatives have been discussed and questions answered. Patient agrees to proceed with procedure.
--- NOTE | 2024-04-16 07:46 | P.OP_ITS ---
Procedure Note - Detailed Date of Procedure 04/16/24 Pre-op Diagnosis Abnormal Uterine Bleeding Post-op Diagnosis Same Procedure Performed hysteroscopy and endometrial ablation Surgeon Donte Hou MD Anesthesia MAC Description of Procedure With IV fluids infusing, the patient was taken to the operating room. The patient was placed in supine position and SCDs were placed on the lower extremities. General anesthesia with endotracheal intubation was given. A time- out took place. The patient was placed in dorsal lithotomy position using Gavin stirrups and she was prepped and draped in the usual sterile fashion. A bivalved speculum was then inserted into the patient's vagina.? The uterus was sounded to 9 cm.? At this point, the? hysteroscope was then inserted into the uterine cavity. Saline was used as the distension medium. The above findings were noted. Both tubal ostia were visualized and pictures were taken.? The hysteroscope was then removed. The cervical length was then measured using the dilator and measured 4.5 cm.? The cervix was further dilated to accommodate the Tamia device. The Tamia device was then opened and the uterine cavity length set at 4.5 cm.? The device was deployed, the mesh examined, and then reinserted into the sheath.? The device was then inserted into the uterine cavity, deployed, and cavity width measurement was appropriate.? The cavity assessment was performed and was within normal limits.? The device was then activated.? Once the ablation was completed the device was removed and the hysteroscope reinserted.? The burn was noted to be equal and adequate.? The hysteroscope and tenaculum were removed.? The anterior lip of the cervix was hemostatic, the bivalve speculum was then removed.? The patient tolerated the procedure well.? Sponge, lap, needle, and instrument counts were correct X3.? The patient was taken out of the dorsal lithotomy position and awakened from anesthesia and taken to the recovery room in stable condition. Estimated Blood Loss 10 Pathology None sent Complications No immediate complications Condition Stable Disposition Same day
[2024-04-16 07:50] VITALS: BP 133/88; PULSE 86; RESP 18; TEMP 36.2; O2SAT 98
[2024-04-16 07:59] LABS: BEDSIDEPREGUCG Negative (Negative)
[2024-04-16] MEDS: LACTATED RINGERS 1,000 ML 30 ML IV CONT (08:00)
[2024-04-16] MEDS: ACETAMINOPHEN 500 MG TABLET 1000 MG PO (08:03)
--- NOTE | 2024-04-16 08:13 | WPDANESEPPF ---
Anes - Initial Pre Proc Eval Procedure: Operation Date: 04/16/24 09:00 Proposed Procedures p Hysteroscopy with Tamia Endometrial Ablation - Donte Hou MD Date/Time: 04/16/24 08:13 Surgeon: Donte Hou MD Pre Op Diagnosis: Abnormal Uterine Bleeding Patient Data Age: 43 Gender: F Height: 1.7 m Weight: 129.4 kg Last Vital Signs Temp 36.2 C L 04/16/24 07:50 Pulse 86 04/16/24 07:50 Resp 18 04/16/24 07:50 BP 133/88 04/16/24 07:50 Pulse Ox 98 04/16/24 07:50 O2 Del Method Room Air 04/16/24 07:50 Allergies Allergy/AdvReac Type Severity Reaction Status Date / Time promethazine Allergy Mild rash and Verified 04/16/24 07:48 vomiting Home Medications Medication Instructions Recorded Confirmed Type Daily Multivitamin 1 tablet PO DAILY 12/22/23 04/16/24 History indomethacin 75 mg 75 mg PO BID 12/22/23 04/16/24 History capsule,extended release tramadol 50 mg tablet 50 mg PO DAILY PRN Pain 12/22/23 04/16/24 History escitalopram oxalate 20 mg tablet 20 mg PO DAILY #90 tabs 02/27/24 04/16/24 Rx (Lexapro) cyclobenzaprine 5 mg tablet 5 mg PO TID PRN Spasms 03/19/24 04/16/24 History cefdinir 300 mg capsule 300 mg PO Q12H 7 days #14 caps 04/10/24 04/16/24 Rx folic acid 1 mg tablet 1 mg PO DAILY 04/10/24 04/16/24 History magnesium 250 mg tablet 250 mg PO BID 04/10/24 04/16/24 History methotrexate sodium 2.5 mg tablet 2.5 mg PO WEEKLY 04/10/24 04/16/24 History norethindrone acetate 5 mg tablet 5 mg PO DAILY 04/10/24 04/16/24 History sulfasalazine 500 mg 1,500 mg PO DAILY 04/10/24 04/16/24 History tablet,delayed release Laboratory Tests 04/16/24 07:50 POC Urine HCG, Qual Negative (Negative) Patient hx anesthesia problems: none Family hx anesthesia problems: none Results Review: All pre-operative results and documents have been reviewed as part of the pre-operative evaluation. PMFSH Past Medical History Medical History Ankylosing spondylitis Anxiety Depression Surgical History Surgical History History of tonsillectomy Family History Family History Father Family history of hypercholesterolemia Hypertension Patient's father is in good health Family history of arthritis Melanoma Sibling Hypertension Patient's sister is in good health Mother Patient's mother is in good health Social History Social History Social History: Smoking status: Never smoker Second hand tobacco smoke exposure: No Alcohol intake: current Drinks per week: 6 Substance use: never Substance use type: does not use Living arrangements: with family Occupation/Education: occupation Gender identity (if verbalized by the patient): Female Sexual Orientation (if Verbalized by the Patient): Straight or Heterosexual Spiritual care concerns: No Anes - Eval Final PreProcedure Day of Procedure 04/16/24 08:13 Patient weight: morbidly obese Heart: regular rate and rhythm Lungs: clear to auscultation Airway: Mallampati scale class II Neurological: alert and oriented Last oral intake: >/= 8 hours ASA classification: III Emergent: no Anesthetic plan: proceed Anesthesia type and monitoring: general GIVS and standard monitoring Results Review: All pre-operative results and documents have been reviewed as part of the pre-operative evaluation. Informed Consent: The patient's anesthetic plan and its attendant risks and benefits were discussed with the patient/family/POA. Questions were solicited and answers provided to the satisfaction of the patient/family/POA.
[2024-04-16] MEDS: LIDO 1%/EPINEPHRINE 1:100,000 20 ML VIAL 10 ML INFILTRATE (09:24)
[2024-04-16 09:41] VITALS: BP 111/60; PULSE 84; RESP 14; O2SAT 100
[2024-04-16 10:10] VITALS: BP 135/79; PULSE 79
[2024-04-16 10:40] VITALS: BP 137/75; PULSE 74
== END 2024-04-16 10:45 | disposition home or self-care (01) ==
PROVIDERS: PCP Family Medicine; Visit Provider Obstetrics & Gynecology
PROC: 0U5B8ZZ Destruction of Endometrium, Via Natural or Artificial Opening Endoscopic (ICD-10-PCS; CPT 58563; principal; 2024-04-16 09:00)
DX: N93.9 Abnormal uterine and vaginal bleeding, unspecified (principal); F41.9 Anxiety disorder, unspecified; F32.A Depression, unspecified; M45.9 Ankylosing spondylitis of unspecified sites in spine; E66.01 Morbid (severe) obesity due to excess calories; Z68.41 Body mass index [BMI] 40.0-44.9, adult; Z79.891 Long term (current) use of opiate analgesic; Z98.890 Other specified postprocedural states; Z80.8 Family history of malignant neoplasm of other organs or systems
CPT/HCPCS: 58563; A9270; J1100; J2250; J2405; J2704; J3010; J7120

== ENCOUNTER 2024-04-17 15:30 | Outpatient (CLI) | payer BC, SELFPAY ==
--- NOTE | ~2024-04-17 | MM_ITS ---
EXAMINATION: MM screening amita BI w abe HISTORY: Screening mammogram TECHNIQUE: Craniocaudal and mediolateral oblique 3-D tomosynthesis images were obtained and synthetic 2-D images were generated. CAD analysis was submitted and interpreted. COMPARISON: 01/07/2023, 12/04/2021, 12/02/2020 BREAST PARENCHYMAL COMPOSITION:Not Dense. The breasts are almost entirely fatty FINDINGS: No suspicious mass, calcification, or architectural distortion are identified in either anupam ast to suggest malignancy. There has been no suspicious interval change. IMPRESSION: No mammographic evidence of malignancy. Recommend routine screening mammography in one year. BI-RADS Category 1: Negative Reviewed, dictated and finalized at location .
== END 2024-04-17 15:31 | disposition home or self-care (01) ==
PROVIDERS: PCP Family Medicine; Visit Provider Obstetrics & Gynecology
DX: Z12.31 Encounter for screening mammogram for malignant neoplasm of breast (principal)
CPT/HCPCS: 77063; 77067

== ENCOUNTER 2024-08-27 15:49 | Outpatient (CLI) | payer BC, SELFPAY ==
[2024-08-27 16:09] LABS: Hematocrit 39.7 % (37.0-47.0); Hemoglobin 12.7 g/dL (12.0-15.0); Mean Corpuscular Hemoglobin 29.1 pg (26-34); Mean Corpuscular Volume 91.1 fl (80-100); Mean Platelet Volume 10.1 fl (7.4-10.4); Platelet Count Result 434 k/mm3 (150-375); Red Blood Count 4.36 M/mm3 (4.2-5.4); Red Cell Distribution Width 12.1 % (11.5-14.5)
[2024-08-27 16:15] LABS: Add Urine Microscopic? YES; Appearance Urine Clear (Clear); Bacteria Urine Rare /hpf; Bilirubin Urine Negative (Negative); Blood Urine Trace (Negative); Color Urine Yellow (Yellow); Glucose Urine UA Negative (Negative); Ketones Urine Trace mg/dL (Negative); Leukocyte Esterase Ur Negative LEU/UL (Negative); Nitrate Urine Negative (Negative); Non Pathogenic Casts 0-2; Protein Urine Negative (Negative); Specific Grav Ur 1.022 (1.001-1.035); Squamous Epithelial Cell Urine Moderate /hpf (Few); Urobilinogen Urine 0.2 mg/dL (<2.0); WBC Urine 0-5 /hpf (0-3); pH Urine 5.5 (5.0-9.0)
[2024-08-27 16:32] LABS: Alanine Aminotransferase 19 U/L (6-35); Albumin Level 4.2 g/dL (3.5-5.1); Alkaline Phosphatase 76 U/L (38-126); Amylase 109 U/L (30-110); Anion Gap 7 mmol/L (4-12); Aspartate Amino Transferase 19 U/L (14-36); Bilirubin,Total 0.7 mg/dL (0.2-1.3); Blood Urea Nitrogen 14 mg/dL (7-17); Calcium 9.2 mg/dL (8.4-10.2); Carbon Dioxide 28 mmol/L (22-30); Chloride 102 mmol/L (98-107); Estimated Glomerular Filt Rate > 60; Glucose 88 mg/dL (65-110); Lipase 189 U/L (23-300); Potassium 4.2 mmol/L (3.4-5.0); Sodium 137 mmol/L (137-145)
[2024-08-27 16:39] LABS: Eosinophils Absolute Manual 0.84 K/mm3 (0.02-0.50); Eosinophils Percent Manual 4 % (0-4); Lymphocytes Absolute Manual 6.09 K/mm3 (1.1-4.5); Monocytes Absolute Manual 0.21 K/mm3 (0.1-0.90); Monocytes Percent Manual 1 % (3-9); Neutrophils Percent Manual 66 % (46-73); Platelet Estimate Increased (Adequate); Total Cells Counted 100
[2024-08-27 16:40] LABS: Hypochromasia 1+; Schistocytes None Seen
== END 2024-08-27 15:50 | disposition home or self-care (01) ==
LOC: ANHLAB 15:51
PROVIDERS: PCP Family Medicine; Visit Provider Physician Assistant
DX: R10.11 Right upper quadrant pain (principal); R10.13 Epigastric pain; M54.9 Dorsalgia, unspecified
CPT/HCPCS: 36415; 80053; 81001; 82150; 83690; 85025

== ENCOUNTER 2024-08-28 07:38 | Outpatient (CLI) | payer BC, SELFPAY ==
--- NOTE | ~2024-08-28 | US_ITS ---
EXAMINATION: US abdomen limited DATE: 08/28/2024 08:20 INDICATION: Right upper quadrant and epigastric abdominal pain. TECHNIQUE: Multiple grayscale and Doppler ultrasound images of the abdomen were obtained. COMPARISON: None FINDINGS: The visualized portions of the head, body, and tail of the pancreas are normal. There is di ffuse hepatic steatosis. The gallbladder is normal in size. No gallstones or gallbladder wall thicken ing. There is no sonographic Cerrato's sign. The common duct is normal and measures 6 mm. IMPRESSION: 1. Diffuse hepatic steatosis. Reviewed, dictated and finalized at location [facility]. 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
--- OUTSIDE RECORDS SUMMARY | 2024-08-30 15:36 | XMS_ITS | Clinical Summary ---
Author Organization [facility] Address [address] [place] [address] Care Team Providers Care Cemetery Worker Name Role Phone Andre Aden MD Primary Care Provider Source Comments [facility],non-owned Affiliates and Associated Physician Practices is amultiple site organization consisting of ambulatory clinics and hospital sitesin [place], [place], [place] and [place]. This disclosure is being madepursuant to the Care Everywhere program and may not contain all information available regarding this patient. Last updated 18.[facility] Allergies Active Allergy Reactions Criticality Noted Date Comments Orphenadrine Unknown 11/02/2023 Promethazine Urticaria,Rash Medium 09/20/2017 Pt reports reaction occurred as a child Medications * Be aware that medications may not be up to date on this document. Alwaysverify current medications with the patient. Medication Sig Dispensed Refills Start Date End Date Status levonorgestrel-ethinyl estradiol (ENPRESSE-28) tablet Take 1 (one) tablet by mouth once daily Active escitalopram (LEXAPRO) 10 MG tablet Take 1 (one) tablet by mouth once daily 5 05/17/2018 Active escitalopram (Lexapro) 20 MG tablet Take 1 (one) tablet by mouth once daily 06/01/2022 Active predniSONE (Deltasone) 5 MG tablet TAKE 2 TABLETS BY MOUTH EVERY DAY FOR 7 DAYS NEEDED FOR FLARE UPS 09/11/2022 Active cyclobenzaprine (Flexeril) 5 MG tablet TAKE 1-2 TABLETS BY MOUTH EVERY EVENING 10/04/2022 Active celecoxib (CeleBREX) 200 MG capsule Take 1 (one) capsule by mouth 2 times daily as needed 10/04/2022 Active diclofenac sodium EC (Voltaren) 75 MG tablet Take 1 (one) tablet by mouth 2 times daily 10/14/2023 Active sulfaSALAzine EC (Azulfidine Entab) 500 MG tablet TAKE 3 TABLETS BY ORAL ROUTE 2 TIMES A DAY FOR 90 DAYS 09/25/2023 Active vedolizumab in 0.9% NaCl IV 0.9 % 250 mL Acti ve methotrexate 2.5 MG tablet TAKE 6 TABLETS BY MOUTH ONCE WEEKLY 09/24/2023 Active folic acid (Folvite) 1 MG tablet Take 1 (one) tablet by mouth once daily 08/10/2023 Active omeprazole (PriLOSEC) 40 MG capsule TAKE 1 CAPSULE BY ORAL ROUTE DAILY 08/10/2023 Active Active Problems Problem Noted Date Diagnosed Date Primary localized osteoarthritis of pelvic regio n and thigh 06/11/2020 Neoplasm of uncertain behavior of skin 6 Melanocytic nevus 05/12/2016 Other melanin hyperpigmentation 05/12/2016 Family history of melanoma 05/12/2016 Other seborrheic keratosis 05/12/2016 Actinic keratosis 05/12/2016 Family History Medical History Relation Name Comments None Known Brother Cancer - Skin, Melanoma Father Cancer - Skin, Non Melanoma Father Hyperlipidemia Father Hypertension Father None Known Maternal Aunt None Known Maternal Grandfather None Known Maternal Grandmother None Known Maternal Uncle None Known Mother None Known Other None Known Paternal Aunt None Known Paternal Grandfather None Known Paternal Grandmother None Known Paternal Uncle None Known Sister Asthma Neg Hx CVA Neg Hx Cancer - Breast Neg Hx Cancer - Other Neg Hx Eczema Neg Hx Hemophilia Neg Hx Psoriasis Neg Hx Relation Name Status Comments Brother Father Alive Maternal Aunt Maternal Grandfather Maternal Grandmother Maternal Uncle Mother Alive Other Paternal Aunt Paternal Grandfather Paternal Grandmother Paternal Uncle Sister Social History Tobacco Use Types Packs/Day Years Used Date Smoking Tobacco: Never Smokeless Tobacco: Never Alcohol Use Standard Drinks/Week Comments Yes 5 (1 standard drink = 0.6 oz pur e alcohol) Sex and Gender Information Value Date Recorded Sex Assigned at Not on file Gender Identity Not on file Sexual Orientation Not on file Last Filed Vital Signs Vital Sign Reading Time Taken Comments Blood Pressure 120/76 09/26/2017 10:13 AM LEARNING AND DEVELOPMENT SPECIALIST Pulse 85 09/26/2017 10:13 AM LEARNING AND DEVELOPMENT SPECIALIST Temperature 37.1 ??C (98.8 ??F) 09/26/2017 10:[address] Respiratory Rate 16 09/26/2017 10:13 AM LEARNING AND DEVELOPMENT SPECIALIST Oxygen Saturation 99% 09/26/2017 10:13 AM LEARNING AND DEVELOPMENT SPECIALIST Inhaled Oxygen Concentration - - Weight 104.3 kg (230 lb) 09/26/2017 10:13 AM LEARNING AND DEVELOPMENT SPECIALIST Height 170.2 cm (5' 7 ) 09/26/2017 10:13 AM LEARNING AND DEVELOPMENT SPECIALIST Body Mass Index 36.02 09/26/2017 10:13 AM LEARNING AND DEVELOPMENT SPECIALIST Plan of Treatment Upcoming Encounters Date Type Department Care Team (Late st Contact Info) Description 11/07/2024 2:40 PM CDT Office Visit [facility] - Dermatology [address] [place] [address], [place] [id number] Christiano Stokes MD [address] [place] [address] [address] [place] [id number] Health Maintenance Due Date Last Done Comments COLOGUARD (AGES 45-75) - COL ON CA SCREENING 1978 COLON MONITORING 1978 COLONOSCOPY - COLON CA SCREENING 1978 CT COLONOGRAPHY - COLON CA SCREENING 1978 Colorectal Cancer Screening 1978 FIT - COLON CA SCREENING 1978 FLEX SIG - COLON CA SCREENING 1978 LIPID TESTING 1978 MAMMOGRAM 1978 HIV SCREENING 1993 HEPATITIS C SCREENING 11/29/1996 DTAP/TDAP/TD VACCINES (1 - Tdap) 1997 HEPATITIS B VACCINE (1 of 3 - 19+ 3-dose series) 1997 COVID-19 VACCINE ( - 2023-2 5 season) 2024 INFLUENZA VACCINE (#1) 2024 DEPRESSION SCREENING 08/08/2024 PAP SMEAR 10/12/2026 10/13/2023 ZOSTER VACCINE (1 of 2) 2028 HIB VACCINE Aged Out No longer eligi ble based on patient's age to complete this topic HPV VACCINE Aged Out No longer eligi ble based on patient's age to complete this topic MENINGOCOCCAL (Group B) VACCINE Aged Out No longer eligible based on patient's age to complete this topic MENINGOCOCCAL VACCINE Aged Out No yossi margy eligible based on patient's age to complete this topic PNEUMOCOCCAL VACCINE Aged Out No long er eligible based on patient's age to complete this topic Care Teams Cemetery Worker Relationship Specialty Start Date End Date Andre Aden MD [address] [place] [id number] PCP - General 05/31/18
--- OUTSIDE RECORDS SUMMARY | 2024-08-30 15:36 | XMS_ITS | Encounter Summary ---
Author Organization [facility] Address 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 - [address] [place] [address] Sven Ford MD [address] [facility] [address] [address] Social History Tobacco Use Types Packs/Day Years Used Date Smoking Tobacco: Never Assessed Comments Unknown Sex and Gender Information Value Date Recorded Sex Assigned at Not on file Legal 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
--- OUTSIDE RECORDS SUMMARY | 2024-08-30 15:36 | XMS_ITS | Encounter Summary ---
Author Organization [facility] Address [address] [place] [address] Care Team Providers Care Public Health Aides Teacher Name Role Phone Andre Aden MD Primary Care Provider [phone] Encounter Details Date Type Department Care Team (Late st Contact Info) Description 03/16/2004 Outpatient Historical [facility] RECREATIONAL THERAPY AIDE - [address] [facility] [facility] [address] [place] [address] Sven Ford MD [address] [facility] [address] [address] Social History Tobacco Use Types Packs/Day Years Used Date Smoking Tobacco: Never Assessed Comments Unknown Sex and Gender Information Value Date Recorded Sex Assigned at Not on file Legal 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
--- OUTSIDE RECORDS SUMMARY | 2024-08-30 15:36 | XMS_ITS | Clinical Summary ---
Author Organization [facility] Address [address] [place] [address] Care Team Providers Care Airborne Weapons Technical Manager Name Role Phone Andre Aden MD Primary Care Provider [phone] Allergies Active Allergy Reactions Criticality Noted Date Comments Promethazine Rash Medium 09/20/2017 Pt reports reaction occurred as a child Medications levonorg-eth estrad triphasic (Enpresse) 50-30 (6)/75-40 (5)/125-30(10) tablet Enpresse 50-30 (6)/75-40(5)/ 125-30(10) tablet Active escitalopram oxalate (LEXAPRO) 10 mg tablet Take 20 mg by mouth daily. Active magnesium oxide 250 mg magnesium Tablet Take 250 mg by mouth 2 times daily. Active Calcium-Cholecalc iferol, D3, (OSCAL) 250 mg-3.125 mcg (125 unit) per tablet Take 2 Tablets by mouth daily. Active multivit with calcium,iron,min (WOMEN'S DAILY MULTIVITAMIN ORAL) Take by mouth. Active diclofenac sodium (VOLTAREN) 75 mg Tablet, Delayed Release (E.C.) Take 75 mg by mouth 2 times daily. Active cyclobenzaprine (FLEXERIL) 5 mg Tablet Take 5 mg by mouth daily at bedtime. Active sulfaSALAzine (AZULFIDINE) 500 mg tablet Take 500 mg by mouth 3 times daily. Active Active Problems No known active problems Family History Medical History Relation Name Comments No Known Problems Daughter Melanoma Father No Known Problems Mother No Known Problems Sister No Known Problems Son Relation Name Status Comments Daughter Alive Father Alive Mother Alive Sister Alive Son Alive Social History Tobacco Use Types Packs/Day Years Used Date Smoking Tobacco: Never Smokeless Tobacco: Never Tobacco Cessation:Counseling Given: Not Answered Alcohol Use Standard Drinks/Week Comments Yes 0 (1 standard drink = 0.6 oz pur e alcohol) socially Comments Unknown Sex and Gender Information Value Date Recorded Sex Assigned at Not on file Legal Sex Female 3: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 Gender Identity Not on file Sexual Orientation Not on file Last Filed Vital Signs Vital Sign Reading Time Taken Comments Blood Pressure 137/77 05/16/2023 3:53 PM CDT Pulse 78 05/16/2023 3:53 PM CDT Temperature 36.2 ??C (97.1 ??F) 05/16/2023 3:53 PM CD T Respiratory Rate 18 05/16/2023 3:53 PM CDT Oxygen Saturation 98% 05/16/2023 3:53 PM CDT Inhaled Oxygen Concentration - - Weight 131.1 kg (289 lb) 05/16/2023 3:53 PM CDT Height 170.2 cm (5' 7 ) 09/27/2022 1:37 PM DRAIN LAYER Body Mass Index 45.26 09/27/2022 1:37 PM DRAIN LAYER Plan of Treatment Health Maintenance Due Date Last Done Comments DTAP/TDAP/TD VACCINES (1 - Tdap) 1997 HEPATITIS B VACCINES (1 of 3 - 19+ 3-dose series) 1997 CERVICAL CANCER SCREENING 2008 BREAST CANCER SCREENING 2018 COLORECTAL SCREENING 12/05/2023 Colorectal Cancer Screening 12/05/2023 FIT-DNA Q 3 years 12/05/2023 FIT/FOBT Q 1 year 12/05/2023 Flex Sig/CT Colonography Q 5 years 12/05/2023 INFLUENZA VACCINE (#1) 2024 HPV VACCINES Aged Out No longer eligi ble based on patient's age to complete this topic PNEUMOCOCCAL VACCINE 0-64 YEARS Aged Out No longer eligible based on patient's age to complete this topic Insurance BCBS BLUE ACCESS/TRUE BLUE PPO BCBS BLUE ACCESS/TRUE BLUE PPO Care Teams Airborne Weapons Technical Manager Relationship Specialty Start Date End Date Andre Aden MD [address] [facility] [address] [place] [address] PCP - General Family Practice 09/27/22
--- OUTSIDE RECORDS SUMMARY | 2024-08-30 15:36 | XMS_ITS | Encounter Summary ---
Author Organization [facility] Address [address] [place] [address] Care Team Providers Care Bulk Sugar Handler Name Role Phone Andre Aden MD Primary Care Provider [phone] Encounter Details Date Type Department Care Team (Late st Contact Info) Description 03/04/2003 Outpatient Historical 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
--- OUTSIDE RECORDS SUMMARY | 2024-08-30 15:36 | XMS_ITS | Patient Health Summary ---
Author Organization [facility] [employer] Address [address] [place] [address] Care Team Providers Care Deputy Fire Chief Name Role Phone Andre Aden MD Primary Care Provider [phone] Note from [facility],non-owned Affiliates and Associated Physician Practices is amultiple site organization consisting of ambulatory clinics and hospital sitesin [place], [place], [place] and [place]. This disclosure is being madepursuant to the Care Everywhere program and may not contain all information available regarding this patient. Last updated 18.[facility] Allergies * Orphenadrine(Unknown) * Promethazine(Urticaria,Rash) -Medium Criticality Medications * Be aware that medications may not be up to date on this document. Alwaysverify current medications with the patient. * levonorgestrel-ethinyl estradiol (ENPRESSE-28) tablet Take 1 (one) tablet by mouth once daily * escitalopram (LEXAPRO) 10 MG tablet(Started 05/17/2018) Take 1 (one) tablet by mouth once daily 5 refills left * escitalopram (Lexapro) 20 MG tablet(Started 06/01/2022) Take 1 (one) tablet by mouth once daily * predniSONE (Deltasone) 5 MG tablet(Started 09/11/2022) TAKE 2 TABLETS BY MOUTH EVERY DAY FOR 7 DAYS NEEDED FOR FLARE UPS * cyclobenzaprine (Flexeril) 5 MG tablet(Started 10/04/2022) TAKE 1-2 TABLETS BY MOUTH EVERY EVENING * celecoxib (CeleBREX) 200 MG capsule(Started 10/04/2022) Take 1 (one) capsule by mouth 2 times daily as needed * diclofenac sodium EC (Voltaren) 75 MG tablet(Started 10/14/2023) Take 1 (one) tablet by mouth 2 times daily * sulfaSALAzine EC (Azulfidine Entab) 500 MG tablet(Started 09/25/2023) TAKE 3 TABLETS BY ORAL ROUTE 2 TIMES A DAY FOR 90 DAYS * vedolizumab in 0.9% NaCl IV 0.9 % 250 mL * methotrexate 2.5 MG tablet(Started 09/24/2023) TAKE 6 TABLETS BY MOUTH ONCE WEEKLY * folic acid (Folvite) 1 MG tablet(Started 08/10/2023) Take 1 (one) tablet by mouth once daily * omeprazole (PriLOSEC) 40 MG capsule(Started 08/10/2023) TAKE 1 CAPSULE BY ORAL ROUTE DAILY Active Problems Problem Noted Date Diagnosed Date Primary localized osteoarthritis of pelvic regio n and thigh 06/11/2020 Neoplasm of uncertain behavior of skin 6 Melanocytic nevus 05/12/2016 Other melanin hyperpigmentation 05/12/2016 Family history of melanoma 05/12/2016 Other seborrheic keratosis 05/12/2016 Actinic keratosis 05/12/2016 Social History Tobacco Use Types Packs/Day Years [...] Comments Blood Pressure 120/76 09/26/2017 10:13 AM DUMPER BAILER OPERATOR Pulse 85 09/26/2017 10:13 AM DUMPER BAILER OPERATOR Temperature 37.1 ??C (98.8 ??F) 09/26/2017 10:[address] Respiratory Rate 16 09/26/2017 10:13 AM DUMPER BAILER OPERATOR Oxygen Saturation 99% 09/26/2017 10:13 AM DUMPER BAILER OPERATOR Inhaled Oxygen Concentration - - Weight 104.3 kg (230 lb) 09/26/2017 10:13 AM DUMPER BAILER OPERATOR Height 170.2 cm (5' 7 ) 09/26/2017 10:13 AM DUMPER BAILER OPERATOR Body Mass Index 36.02 09/26/2017 10:13 AM DUMPER BAILER OPERATOR Procedures * OR DESTROY PREMALIG LESION, 1ST LESION(Performed 10/13/2022) Performed for Seborrheic keratoses, inflamed * OR DESTRUCT BENIGN LESION, 1-14(Performed 10/13/2022) Performed for Seborrheic keratoses, inflamed * XR SI JOINTS 3VW OR MORE(Performed 05/03/2022) Performed for Polyarthropathy, inflammatory (HCC), Positive BOSTON (antinuclear antibody), Muscle cramps at night * XR PELVIS W BILAT HIP 2VW(Performed 05/03/2022) Performed for Polyarthropathy, inflammatory (HCC), Positive [place] (antinuclear antibody), Muscle cramps at night * OR DESTROY PREMALIG LESION, 1ST LESION(Performed 06/17/2021) Performed for Actinic keratosis * OR DESTROY PREMALIG LESION, 2-14(Performed 06/17/2021) Performed for Actinic keratosis * OR DESTRUCT BENIGN LESION, 1-14(Performed 06/06/2019) Performed for Seborrheic keratoses, inflamed * OR DESTROY PREMALIG LESION, 1ST LESION(Performed 06/06/2019) Performed for Actinic keratosis * INFLUENZA A+B - POINT OF CARE (AMB)(Performed 09/20/2017) Performed for Viral URI with cough * DERMATOPATHOLOGY(Performed 05/12/2016) * PATHOLOGY/GENETICS HISTORICAL-ONBASE(Performed 01/06/2011) Results * OR DESTROY PREMALIG LESION, 1ST LESION (10/13/2022 2:19 PM DUMPER BAILER OPERATOR) Narrative Christiano Stokes MD - 10/13/2022 2:19 PM DUMPER BAILER OPERATOR Charu Morris MD ? 10/13/2022 ??2:19 PM Diagnosis and treatment options discussed, addressing the benefit and risks of each. Pt wish to proceed with cryotherapy. Liquid Nitrogen was applied to 1 lesion (R Cheek) for 7-10s each. Number of cycles: 1. Wound care reviewed. ?? Charu Morris MD Dermatology, PGY-2 Christiano Stokes MD PROCEDURE/MINOR SURG ICAL ORDERABLES * OR DESTRUCT BENIGN LESION, 1-14 (10/13/2022 2:18 PM DUMPER BAILER OPERATOR) Narrative Christiano Stokes MD - 10/13/2022 2:18 PM DUMPER BAILER OPERATOR Charu Morris MD ? 10/13/2022 ??2:18 PM Diagnosis and treatment options discussed, addressing the benefit and risks of each. Pt wish to proceed with cryotherapy. Liquid Nitrogen was applied to lesions on trunk and L anterior shoulder for 7-10s each. Number of cycles: 1. Wound care reviewed. ?? Charu Morris MD Dermatology, PGY-2 M Tessa Stokes MD PROCEDURE/MINOR SURG ICAL ORDERABLES * XR SACROILIAC JOINTS 3+ VW (05/03/2022 3:01 PM CDT) Anatomical Region Laterality Modality Pelvis, Lower Extremity Radiogra phic Imaging 05/03/2022 3:07 PM CDT Impressions 05/03/2022 3:07 PM CDT IMPRESSION: No acute osseous abnormality > Interpreting Provider: Elvis Camacho MD on 05/03/2022 3:07 PM Narrative 05/03/2022 3:07 PM CDT PROCEDURE: ??XR SI JOINTS 3VW OR MORE, DATE/TIME OF EXAM: ??05/03/2022 3:01 PM, LOCATION ??[facility] INDICATION: M06.4: Inflammatory polyarthropathy R76.8: Other specified abnormal immunological findings in serum R25.2: Cramp and spasm ADDITIONAL CLINICAL INFORMATION: Ordering Provider Reason For Exam: Technologist Note: Additional: COMPARISON: None. TECHNIQUE: 3 views of the sacroiliac joints FINDINGS: No acute fracture, subluxation or dislocation is present. The bilateral sacroiliac joints are patent and symmetric. Procedure Note Elvis Camacho MD - 05/03/2022 PROCEDURE: XR SI JOINTS 3VW OR MORE, DATE/TIME OF EXAM: 05/03/2022 3:01 PM, LOCATION [facility] INDICATION: M06.4: Inflammatory polyarthropathy R76.8: Other specified abnormal immunological findings in serum R25.2: Cramp and spasm ADDITIONAL CLINICAL INFORMATION: Ordering Provider Reason For Exam: Technologist Note: Additional: COMPARISON: None. TECHNIQUE: 3 views of the sacroiliac joints FINDINGS: No acute fracture, subluxation or dislocation is present. The bilateral sacroiliac joints are patent and symmetric. IMPRESSION: No acute osseous abnormality > Interpreting Provider: Elvis Camacho MD on 05/03/2022 3:07 PM Antonino Stark MD DIAGNOSTIC IMAGING O RDERABLES * XR HIPS BILATERAL 2 VW W AP PELVIS (05/03/2022 3:00 PM CDT) Anatomical Region Laterality Modality Pelvis, Lower Extremity Radiogra phic Imaging 05/03/2022 3:07 PM CDT Impressions 05/03/2022 3:08 PM CDT IMPRESSION: No acute osseous abnormality > Interpreting Provider: Elvis Camacho MD on 05/03/2022 3:08 PM Narrative 05/03/2022 3:08 PM CDT PROCEDURE: ??XR PELVIS W BILAT HIP 2VW, DATE/TIME OF EXAM: ??05/03/2022 3:01 PM, LOCATION ??[facility] INDICATION: M06.4: Inflammatory polyarthropathy R76.8: Other specified abnormal immunological findings in serum R25.2: Cramp and spasm ADDITIONAL CLINICAL INFORMATION: Ordering Provider Reason For Exam: Technologist Note: Additional: COMPARISON: None. TECHNIQUE: AP pelvis and right and left hip 2 views each FINDINGS: There is no acute fracture, subluxation or dislocation. No bony destructive process is present. Procedure Note Elvis Camacho MD - 05/03/2022 PROCEDURE: XR PELVIS W BILAT HIP 2VW, DATE/TIME OF EXAM: 23:01 PM, LOCATION [facility] INDICATION: M06.4: Inflammatory polyarthropathy R76.8: Other specified abnormal immunological findings in serum R25.2: Cramp and spasm ADDITIONAL CLINICAL INFORMATION: Ordering Provider Reason For Exam: Technologist Note: Additional: COMPARISON: None. TECHNIQUE: AP pelvis and right and left hip 2 views each FINDINGS: There is no acute fracture, subluxation or dislocation. No bonydestructive process is present. IMPRESSION: No acute osseous abnormality > Interpreting Provider: Elvis Camacho MD on 05/03/2022 3:08 PM Antonino Stark MD DIAGNOSTIC IMAGING O RDERABLES * OR DESTROY PREMALIG LESION, 2-14, OR DESTROY PREMALIG LESION, 1ST LESION (06/17/2021 1:40 PM DUMPER BAILER OPERATOR) Narrative Christiano Stokes MD - 06/17/2021 1:40 PM DUMPER BAILER OPERATOR Aye Méndez MD ? 06/17/2021 ??1:41 PM Liquid nitrogen was applied for 7-10 ??seconds to the skin lesion(s) (face x3) and the expected blistering or scabbing reaction explained. Patient tolerated the procedure well. Do not pick at the areas. Patient reminded to expect hypopigmented scars from the procedure. Return if lesions fail to fully resolve. Aye Méndez MD Dermatology PGY-4 Christiano Stokes MD PROCEDURE/MINOR SURG ICAL ORDERABLES * OR DESTRUCT BENIGN LESION, 1-14 (06/06/2019 1:42 PM CDT) Narrative Christiano Stokes MD - 06/06/2019 1:42 PM CDT Phillip Bowen MD ? 06/06/2019 ??1:42 PM Diagnosis and treatment options discussed for ISKs. Verbal consent obtained. Cryotherapy (Liquid Nitrogen) performed to 1 lesions on ??L dorsal hand for 6-7 seconds each. Number of cycles: 1. Wound care reviewed and post-cryotherapy handout given. Phillip Bowen MD [facility] Dermatology Resident, PGY-2 ' Christiano Stokes MD PROCEDURE/MINOR SURG ICAL ORDERABLES * OR DESTROY PREMALIG LESION, 1ST LESION (06/06/2019 1:41 PM CDT) Narrative Christiano Stokes MD - 06/06/2019 1:41 PM CDT Phillip Bowen MD ? 06/06/2019 ??1:42 PM Diagnosis and treatment options discussed for AKs. Verbal consent obtained. Cryotherapy (Liquid Nitrogen) performed to 1 lesions on L cheek ?? for 6-7 seconds each. Number of cycles: 1. Wound care reviewed and post-cryotherapy handout given. Phillip Bowen MD [facility] Dermatology Resident, PGY-3 Christiano Stokes MD PROCEDURE/MINOR SURG ICAL ORDERABLES * INFLUENZA A+B - POINT OF CARE (AMB) (09/20/2017) Influenza A Antigen Rapid Negative Negative Influenza B Antigen Rapid Negative Negative Influenza Internal Control present NEGATIVE - POSITIVE Influenza Lot Number [id number] Influenza Expiration Date 05 30 2019 Other NASOPHARYNGEAL SWAB / Unknown 09/20/2017 Lawrence Womakc INTERCEPTOR OPERATOR-OVERHAULER [facility] - [facility] RE ORDERABLES * PATHOLOGY TISSUE FOR DERMATOLOGY (05/12/2016 12:00 AM CDT) Result CASE: [id number] PATIENT: EVELIN BRIZUELA PATHOLOGIC DIAGNOSIS: Left inframammary area: ACROCHORDON (SOFT FIBROMA, SKIN TAG) CLINICAL DATA: Acrochordon vs IDN vs other. GROSS DESCRIPTION: Received is one formalin filled container labeled with the patients name and designated left infra-mammary. The specimen consists of a shave biopsy measuring [id number]. The specimen is bisected and submitted in 1 cassette. Jar 0. MICROSCOPIC DESCRIPTION: There is a gently folded epidermis surrounding a connective tissue core in which fat and collagen are intermingled. Electronically signed out by Brittany Padron M.D., PhD. 05/14/2016 2:49:19PM [facility] Comment: Performed at: Dermatopathology Laboratory [facility] - Department of Dermatology [address] [place] [address] Phone number: [phone] FAX: [phone] Skin (tissue) specimen (specimen) 05/12/2016 05/13/2016 Narrative [facility] - 05/14/2016 2:49 PM CDT Specimen A: Type->Shave ?Site->L infra-mammary area ?History->Skin colored pedunculated papule, irritated ?Impression->Acrochordon vs IDN vs other ?Check Margins:->No ?Prior Biopsy->No Christiano Stokes MD LAB - PATHOLOGY/CYTO LOGY ORDERABLES [facility] [address] Lab [address] [phone] * PATHOLOGY/GENETICS HISTORICAL-ONBASE (01/06/2011) 01/06/2011 Historical Provider LAB - CHEMISTRY O RDERABLES Performing Organization Address City/[facility] Co de Phone Number [facility] Care Teams Deputy Fire Chief Relationship Specialty Start Date End Date Andre Aden MD [address] [place] [address] PCP - General 05/31/18
--- OUTSIDE RECORDS SUMMARY | 2024-08-30 15:36 | XMS_ITS | Referral Summary ---
Author Organization [facility] [employer] Address [address] [place] [address] Care Team Providers Care Receiving Associate Name Role Phone Andre Aden MD Primary Care Provider [phone] Source Comments [facility] [employer],non-owned Affiliates and Associated Physician Practices is amultiple site organization consisting of ambulatory clinics and hospital sitesin [place], [place], [place] and [place]. This disclosure is being madepursuant to the Care Everywhere program and may not contain all information available regarding this patient. Last updated 18.[facility] [employer] Allergies Active Allergy Reactions Criticality Noted Date [...] Comments Blood Pressure 120/76 09/26/2017 10:13 AM BACK SEWER Pulse 85 09/26/2017 10:13 AM BACK SEWER Temperature 37.1 ??C (98.8 ??F) 09/26/2017 10:13 AM C Respiratory Rate 16 09/26/2017 10:13 AM BACK SEWER Oxygen Saturation 99% 09/26/2017 10:13 AM BACK SEWER Inhaled Oxygen Concentration - - Weight 104.3 kg (230 lb) 09/26/2017 10:13 AM BACK SEWER Height 170.2 cm (5' 7 ) 09/26/2017 10:13 AM BACK SEWER Body Mass Index 36.02 09/26/2017 10:13 AM BACK SEWER Plan of Treatment Upcoming Encounters Date Type Department Care Team (Late st Contact Info) Description 11/07/2024 2:40 PM CDT Office Visit [facility] - Dermatology [address] [place] [phone] Christiano Stokes MD [address] [address] [place] [phone] Care Teams Receiving Associate Relationship Specialty Start Date End Date Andre Aden MD [address] [place] [address] PCP - General 05/31/18
--- OUTSIDE RECORDS SUMMARY | 2024-08-30 15:36 | XMS_ITS | Encounter Summary ---
Author Organization [facility] Address [address] [place] [address] Care Team Providers Care Sales Architect Name Role Phone Andre Aden MD Primary Care Provider [phone] Encounter Details Date Type Department Care Team (Late st Contact Info) Description 06/10/2022 Telephone [facility] [address] [place] [address], [place] [address] Christiano Stokes MD [address] [place] [address] [address] [place] [address] Social History Tobacco Use Types Packs/Day Years Used Date Smoking Tobacco: Never Smokeless Tobacco: Never Alcohol Use Standard Drinks/Week Comments Yes 5 (1 standard drink = 0.6 oz pur e alcohol) Sex and Gender Information Value Date Recorded Sex Assigned at Not on file Gender Identity Not on file Sexual Orientation Not on file documented as of this encounter Miscellaneous Notes * Telephone Encounter - Ed Rubio - 06/10/2022 3:00 PM CDT Current Provider name:Divya Reason for call: Patient would like to know if she can be seen sooner if possible. Patient's appt was cancelled and she rescheduled for 10/13/21 but would like to be seen sooner. Patient Call Back number: [phone] documented in this encounter Plan of Treatment Upcoming Encounters Date Type Department Care Team (Late st Contact Info) Description 11/07/2024 2:40 PM CDT Office Visit [facility] - Dermatology [address] [place] [address], [place] [address] Christiano Stokes MD [address] [place] [address] [address] [place] [address] documented as of this encounter Visit Diagnoses Not on filedocumented in this encounter Care Teams Sales Architect Relationship Specialty Start Date End Date Andre Aden MD [address] [place] [address] PCP - General 05/31/18 documented as of this encounter
== END 2024-08-28 07:39 | disposition home or self-care (01) ==
PROVIDERS: PCP Family Medicine; Visit Provider Physician Assistant
DX: R10.11 Right upper quadrant pain (principal); R10.13 Epigastric pain; M54.9 Dorsalgia, unspecified; R11.0 Nausea; K76.0 Fatty (change of) liver, not elsewhere classified
CPT/HCPCS: 76705

== ENCOUNTER 2024-10-22 11:39 | Outpatient (CLI) | payer BC, SELFPAY ==
--- NOTE | ~2024-10-22 | XR_ITS ---
Right Hand Technique: PA and lateral views were obtained. Clinical History: Pain Findings: No acute fracture or dislocation is seen. Osseous alignment is anatomic. Joint spaces are p reserved. Soft tissues are unremarkable. Impression: Unremarkable right hand. Reviewed, dictated and finalized at location M. Impression: Unremarkable right hand.
--- NOTE | ~2024-10-22 | XR_ITS ---
Left Hand Technique: PA and lateral views were obtained. Clinical History: Pain Findings: No acute fracture or dislocation is seen. Osseous alignment is anatomic. Joint spaces are p reserved. Soft tissues are unremarkable. Impression: Unremarkable left hand. Reviewed, dictated and finalized at location M. Impression: Unremarkable left hand.
--- NOTE | ~2024-10-22 | XR_ITS ---
XR sacroiliac joints min 3V Ordering provider: Sandi Jose, MICHAEL History: . Pain in unspecified joint; bilateral thumb pain; foot pain . Comparison: None. FINDINGS: BONES: No acute fracture or dislocation. JOINTS: The left sacroiliac joint spaces appear well maintained. No bony fusion of the sacroiliac joie nts or bony erosions. Narrowing of the right sacroiliac joint with minimal sclerosis is seen suggesti ve of sacroiliitis. SOFT TISSUES: Unremarkable. IMPRESSION: NO ACUTE OSSEOUS ABNORMALITY. Right sacroiliitis. Reviewed, dictated and finalized at location A.
== END 2024-10-22 11:40 | disposition home or self-care (01) ==
LOC: MICIMG 11:42
PROVIDERS: PCP Family Medicine; Visit Provider Physician Assistant
DX: M46.1 Sacroiliitis, not elsewhere classified (principal); M79.642 Pain in left hand; M79.641 Pain in right hand; M79.672 Pain in left foot; M79.671 Pain in right foot
CPT/HCPCS: 72202; 73120; 73630

== ENCOUNTER 2024-11-20 15:28 | Outpatient (CLI) | payer BC, SELFPAY ==
--- NOTE | ~2024-11-20 | MR_ITS ---
MRI of the SI joints Clinical history 1 right sacroiliitis TECHNIQUE: Sagittal proton-density fat-sat images, coronal T1-weighted, T2-weighted, and T2 fat-sat i mages, and axial T1-weighted and T2 fat-sat images were performed. Following intravenous administrati on of 20 cc MultiHance gadolinium, T1-weighted fat-sat imaging was performed in the axial and coronal planes. FINDINGS: There is asymmetric mild sclerosis on the iliac side of the right SI joint. No bone marrow edema or erosions are identified involving either SI joint. SI joint spaces are preserved bilaterally . No joint effusion evident. Visualized sacrum intact. Soft tissues are unremarkable. No abnormal postcontrast enhancement identified. IMPRESSION: Mild asymmetric sclerosis in the iliac side of the right SI joint. 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 No bone marrow edema, erosive change, or postcontrast enhancement identified. Reviewed, dictated and finalized at [facility]. IMPRESSION: Mild asymmetric sclerosis in the iliac side of the right SI joint. 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 No bone marrow edema, erosive change, or postcontrast enhancement identified.
== END 2024-11-20 15:29 | disposition home or self-care (01) ==
LOC: MICIMG 15:29
PROVIDERS: PCP Family Medicine; Visit Provider Physician Assistant
DX: M46.1 Sacroiliitis, not elsewhere classified (principal)
CPT/HCPCS: 72197; A9577

== ENCOUNTER 2024-11-23 00:16 | Day surgery (SDC) | payer BC, SELFPAY ==
[2024-11-15 14:46] VITALS: BMI 46.2
--- OUTSIDE RECORDS SUMMARY | 2024-11-23 00:18 | XMS_ITS | Referral Summary ---
Author Organization [facility] Address [address] [place] [address] Phone Care Team Providers Care Yarn Preparation Supervisor Name Role Phone Andre Aden MD Primary Care Provider Paco Rivas MD Unavailable [phone] Encounters Date Type Department Care Team Description 11/22/2024 Results Follow-Up [address] [id number] Sandi Jose PA 11/22/2024 Orders Only [address] [phone] Sandi Jose PA 11/19/[address] [phone] Ita Case Approved 11/05/[address] [phone] Jos Rodriguez 11/05/2024 3:45 PM CDT Office Visit [address] [phone] Sandi Jose PA Polyarthralgia (Primary Dx); Sacroiliitis; Localized primary osteoarthritis of carpometacarpal (CMC) joint, unspecified laterality 10/24/2024 Results Follow-Up [address] [phone] MeSandi gonsalez PA 10/24/2024 Orders Only [facility] [address] [place] [phone] Sandi Jose PA 10/22/2024 Results Follow-Up [address] [phone] Sandi Jose PA 10/22/2024 9:30 AM CDT Office Visit [address] [phone] Sandi Jose PA Polyarthralgia (Primary Dx) 09/11/[address] [phone] Obed Cadet New Patient Appt from Last 3 Months Allergies Active Allergy Reactions Criticality Noted Date Comments Promethazine Hives,Rash,Urticaria Medium 09/20/2017 Pt reports reaction occurred as a child Medications escitalopram (LEXAPRO) 20 mg tablet Take 1 tablet (20 mg total) by mouth daily Active magnesium oxide (MAG-OX) 250 mg (150.8 mg elemental) tablet Take 1 tablet (250 mg total) by mouth 2 (two) times a day Active omeprazole (PriLOSEC) 40 mg capsule Take by mouth daily Active valsartan (DIOVAN) 160 mg tablet Take 1 tablet (160 mg total) by mouth daily 07/08/2024 Active multivitamin tabletIndicatio ns:Vitamin Deficiency Prevention Take 1 tablet by mouth Active cetirizine (ZyrTEC) 10 mg tablet Take 1 tablet (10 mg total) by mouth daily Active acetaminophen (TYLENOL) 500 mg tablet Take 2 tablets (1,000 mg total) by mouth 2 (two) times a day Active Active Problems Problem Noted Date Diagnosed Date Localized primary osteoarthr itis of carpometacarpal (CMC) joint 11/05/2024 Assessment & Plan (11/05/2024 4:17 PM CDT): Pain with activity suggestive of OA. Discussed options with patient who agrees to a right 1st CMC intra-articular kenalog injection today. Patient was advised of the potential side effects of the medication, including but not limited to increased blood sugar, weight gain, avascular necrosis, glaucoma, cataracts, and/or osteoporosis. Discussed risk of infection with joint injection. Area prepped with betadine and alcohol swabs. 40mg of kenalog injected into the right 1st CMC joint space by Dr. Rivas under US guidance. Bandage applied. Patient tolerated procedure well. Procedure repeated on the left 1st CMC joint today under US guidance as well. Polyarthralgia 10/22/2024 Overview (11/22/2024): 10/22/24: WBC 10.9, ESR 22, CRP 3.27mg/dL, CMP nl AVISE 10/22/24: negative XR 10/22/24: R foot: unremarkable L foot: unremarkable R hand: unremarkable L hand: unremarkable SI joints: narrowing of the right SI joints with minimal sclerosis suggestive of sacroiliitis. MRI SI joints 11/20/24: mild asymmetric sclerosis in the iliac side of the right SI joint. 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 No marrow edema, erosive change, or post-contrast enhancement identified. Assessment & Plan (11/05/2024 3:24 PM CDT): 43-year-old female with PMHx of HTN, depression, anxiety, GERD, acute pancreatitis, and OA here for a 2nd opinion on prior diagnosis of . Hx right plantar fasciitis resolved s/p fasciectomy, +BOSTON, and elevated CRP at the time of diagnosis. Denies any low back/SI joint pain/AM stiffness and XR SI joints (2021) was unremarkable. She denies much relief with past treatments (MTX, SSZ, AZA, simponi aria IV). C/o pain now in the bilateral 1st CMC joints that responds to indomethacin however avoiding NSAIDs since acute pancreatitis in 09/2024. Denies any significant AM joint pain/stiffness and pain appear more mechanical. Our rheumatologic evaluation with AVISE panel was negative for any autoantibodies, including BOSTON. CRP was elevated with normal ESR. XR of the SI joints showed minimal sclerosis and narrowing of the right SI joint. Will f/u with MRI evaluation to definitively differentiate between OA vs inflammatory cause for sclerosis however with her current symptoms I am leaning towards OA rather than . The XR of the bilateral hands and feet were normal. -At this time, symptoms do not reflect previous diagnosis of and I suspect symptoms are due to OA. -Due to sclerosis on XR, will get MRI SI joints to further evaluate for DJD vs inflammation. -Should MRI suggest DJD, then would retract previous diagnosis of and attribute symptoms to OA. -Will call with results and f/u if needed. Assessment & Plan (10/22/2024 11:39 AM CDT): 43-year-old female with PMHx of HTN, depression, anxiety, GERD, acute pancreatitis, and OA here for a 2nd opinion on prior diagnosis of . Hx right plantar fasciitis resolved s/p fasciectomy, +BOSTON, and elevated CRP at the time of diagnosis. Denies any low back/SI joint pain/AM stiffness and XR SI joints (2021) was unremarkable. She denies much relief with past treatments (MTX, SSZ, AZA, simponi aria IV). C/o pain now in the bilateral 1st CMC joints that responds to indomethacin however avoiding NSAIDs since acute pancreatitis in 09/2024. Denies any significant AM joint pain/stiffness and pain appear more mechanical. At this time, symptoms do not reflect previous diagnosis of . Symptoms and exam are more suspicious for osteoarthritis. Will order appropriate serologies and radiographs to further evaluate and rule out an inflammatory arthritis. Follow up in 2 weeks. Sooner if needed. Seen with Dr. Rivas. 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 Gender Identity Not on file Sexual Orientation Not on file Last Filed Vital Signs Vital Sign Reading Time Taken Comments Blood Pressure 150/82 11/05/2024 3:32 PM CDT Pulse 85 11/05/2024 3:32 PM CDT Temperature - - Respiratory Rate - - Oxygen Saturation 95% 11/05/2024 3:32 PM CDT Inhaled Oxygen Concentration - - Weight 134.7 kg (297 lb) 11/05/2024 3:32 PM CDT Height 170.2 cm (5' 7 ) 11/05/2024 3:32 PM CDT Body Mass Index 46.52 11/05/2024 3:32 PM CDT Plan of Treatment Not on file Procedures Procedure Name Priority Date/Time Associated Diagnosis Comments SCAN - RADIOLOGY/IMAGING 11/22/2024 2:37 PM CDT MISCELLANEOUS LAB TEST Routine 10/26/2024 10:13 AM CDT Polyarthralgia SCAN - RADIOLOGY/IMAGING 10/24/2024 8:55 AM CDT XR FOOT RIGHT 3 OR MORE VIEWS Schedule Routine, Read Routine (OP Routine) 10/22/2024 1:49 PM CDT Polyarthralgia CRP (ACUTE PHASE) Routine 10/22/2024 10: 54 AM CDT Polyarthralgia ERYTHROCYTE SEDIMENTATION RATE Routine 10/22/2024 10:54 AM CDT Polyarthralgia CBC WITH AUTO DIFFERENTIAL Routine 10/22/2024 10:54 AM CDT Polyarthralgia COMPREHENSIVE METABOLIC PANEL Routine 10/22/2024 10:54 AM CDT Polyarthralgia from Last 3 Months Results * SCAN - RADIOLOGY/IMAGING (11/22/2024 2:37 PM CDT) Anatomical Region Laterality Modality Other us Sandi JUNIOR Final Result * AVISE CTD - Miscellaneous Test (10/26/2024 10:13 AM CDT) Miscellaneous us Sandi JUNIOR LAB BLOOD ORDERABLES Final Result EXTERNAL LAB * SCAN - RADIOLOGY/IMAGING (10/24/2024 8:55 AM CDT) Anatomical Region Laterality Modality Other us Sandi JUNIOR Final Result * XR Foot Right 3 or More Views (10/22/2024 1:49 PM CDT) Anatomical Region Laterality Modality Lower Extremities, Foot Right Radiogra phic Imaging Sandi JUNIOR IMG XR PROCEDURES Fin al Result * (ABNORMAL) CBC with auto differential (10/22/2024 10:54 AM CDT) WBC 10.9(H) 3.8 - 10.8 Thousand/u L [facility] RBC, POC 4.53 3.80 - 5.10 Million/uL [facility] Hgb 13.4 11.7 - 15.5 g/dL [facility] Hct 40.8 35.0 - 45.0 % [facility] MCV 90.1 80.0 - 100.0 fL [facility] MCH 29.6 27.0 - 33.0 pg [facility] MCHC 32.8 32.0 - 36.0 g/dL [facility] Comment: For adults, a slight decrease in the calculated MCHC value (in the range of 30 to 32 g/dL) is most likely not clinically significant; however, it should be interpreted with caution in correlation with other red cell parameters and the patient's clinical condition. Rdw 12.4 11.0 - 15.0 % [facility] Platelets 354 140 - 400 Thousand/u L [facility] MPV 10.8 7.5 - 12.5 fL [facility] Neutrophils, abs 7,063 1,500 - 7,800 cells/uL [facility] Lymphocytes, abs 2,845 850 - 3,900 cells/uL [facility] Monocyte abs 730 200 - 950 cells/uL [facility] Eosinophils, abs 196 15 - 500 cells/uL [facility] Basophils, abs 65 0 - 200 cells/uL [facility] Neutrophils 64.8 % [facility] Lymphocyte pct 26.1 % [facility] Monocytes 6.7 % [facility] Eosinophils 1.8 % [facility] Basophils 0.6 % [facility] Blood 10/22/2024 10:5 4 AM CDT 10/22/2024 10:55 AM CDT Sandi JUNIOR LAB BLOOD ORDERABLES Final Result Performing Organization Address [facility] Co de Phone Number QUEST [facility] [address] [place] [address] * (ABNORMAL) Erythrocyte sedimentation rate (10/22/2024 10:54 AM CDT) Pathologist [facility] Erythrocyte sedimentation rate 22(H) < OR = 20 mm/h [facility] Blood 10/22/2024 10:5 4 AM CDT 10/22/2024 10:55 AM CDT Sandi JUNIOR LAB BLOOD ORDERABLES Final Result Performing Organization Address [facility] de Phone Number QUEST [facility] [address] [place] [address] * (ABNORMAL) CRP (acute phase) (10/22/2024 10:54 AM CDT) [facility] C-RP 32.7(H) <8.0 mg/L [facility] Blood 10/22/2024 10:5 4 AM CDT 10/22/2024 10:55 AM CDT Sandi JUNIOR LAB BLOOD ORDERABLES Final Result Performing Organization Address [facility] Co de Phone Number QUEST [facility] [address] [place] [address] * Comprehensive metabolic panel (10/22/2024 10:54 AM CDT) [facility] Glucose 84 65 - 99 mg/dL [facility] Comment: Fasting reference interval BUN 14 7 - 25 mg/dL [facility] Creatinine 0.83 0.50 - 0.99 mg/dL [facility] eGFR 89 > OR = 60 mL/min/1.7 3m2 [facility] BUN/creat ratio SEE NOTE: 6 - 22 (calc) [facility] Comment: Not Reported: BUN and Creatinine are within reference range. Sodium 140 135 - 146 mmol/L [facility] Potassium, pl 4.8 3.5 - 5.3 mmol/L [facility] Chloride 103 98 - 110 mmol/L [facility] CO2 30 20 - 32 mmol/L [facility] Calcium 9.6 8.6 - 10.2 mg/dL [facility] Protein, sr 7.2 6.1 - 8.1 g/dL [facility] Albumin 4.1 3.6 - 5.1 g/dL [facility] GLOBULIN 3.1 1.9 - 3.7 g/dL (calc) [facility] Alb/glob ratio 1.3 1.0 - 2.5 (calc) [facility] Bilirubin, total 0.2 0.2 - 1.2 mg/dL [facility] Alk phos 81 31 - 125 U/L [facility] AST 20 10 - 35 U/L [facility] ALT (SGPT) 21 6 - 29 U/L [facility] Blood 10/22/2024 10:5 4 AM CDT 10/22/2024 10:55 AM CDT us Sandi JUNIOR LAB BLOOD ORDERABLES Final Result [facility] [address] [address] [phone] from Last 3 Months Insurance [employer] ACCESS OOS Care Teams Yarn Preparation Supervisor Relationship Specialty Start Date End Date Andre Aden MD [address] [place], [place] [phone] PCP - General Family Medicine 04/05/22 Paco Rivas MD [address] [place] [address] Consulting Physician Rheumatology 09/05/24
--- OUTSIDE RECORDS SUMMARY | 2024-11-23 00:18 | XMS_ITS | Encounter Summary ---
Author Organization [facility] Address [address] [place] [address] Care Team Providers Care Medical Operations Supervisor Name Role Phone Andre Aden MD Primary Care Provider [phone] Encounter Details Date Type Department Care Team (Late st Contact Info) Description 03/16/2004 Outpatient Historical [facility] LANDFILL GRADER - [address] [place] [address] Sven Ford MD [address] [address] Social History Tobacco Use Types Packs/Day Years Used Date Smoking Tobacco: Never Assessed Comments Unknown Sex and Gender Information Value Date Recorded Sex Assigned at Not on file 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
--- OUTSIDE RECORDS SUMMARY | 2024-11-23 00:18 | XMS_ITS | Encounter Summary ---
Author Organization [facility] Address [address] [place] [address] Care Team Providers Care Violin Maker Hand Name Role Phone Andre Aden MD Primary Care Provider [phone] Encounter Details Date Type Department Care Team (Late st Contact Info) Description 03/04/2003 Outpatient Historical [facility] CRANE HELPER - [address] [place] [address] Sven Ford MD [address] [address] [address] Social History Tobacco Use Types Packs/Day Years Used Date Smoking Tobacco: Never Assessed Comments Unknown Sex and Gender Information Value Date Recorded Sex Assigned at Not on file 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
--- OUTSIDE RECORDS SUMMARY | 2024-11-23 00:18 | XMS_ITS | Encounter Summary ---
Author Organization [facility] Address [address] [place] [address] Care Team Providers Care Hanger Off Name Role Phone Andre Aden MD Primary Care Provider [phone] Encounter Details Date Type Department Care Team (Late st Contact Info) Description 02/28/2002 Outpatient Historical [facility] VENEER CLIPPER - [address] [facility] [address] [place] [address] Sven Ford MD [address] [facility] [address] [address] Social History Tobacco Use Types Packs/Day Years Used Date Smoking Tobacco: Never Assessed Comments Unknown Sex and Gender Information Value Date Recorded Sex Assigned at Not on file 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
--- OUTSIDE RECORDS SUMMARY | 2024-11-23 00:18 | XMS_ITS | Encounter Summary ---
Author Organization [facility] Address [address] [place] [address] Phone Care Team Providers Care Bobbin Winder Tender Name Role Phone Andre Aden MD Primary Care Provider Paco Rivas MD Unavailable [phone] Encounter Details Date Type Department Care Team (Late st Contact Info) Description 11/22/2024 Orders Only [facility] [address] [place] [address] Sandi Jose PA [address] [place] [address] Social History Tobacco Use Types Packs/Day Years Used Date Smoking Tobacco: Never Comments Unknown Sex and Gender Information Value Date Recorded Sex Assigned at Not on file Legal Sex Female 7:59 AM SKIVING 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 Gender Identity Not on file Sexual Orientation Not on file documented as of this encounter Plan of Treatment Not on file documented as of this encounter Procedures Procedure Name Priority Date/Time Associated Diagnosis Comments SCAN - RADIOLOGY/IMAGING 11/22/2024 2:37 PM CDT documented in this encounter Results * SCAN - RADIOLOGY/IMAGING (11/22/2024 2:37 PM CDT) Anatomical Region Laterality Modality Other us Sandi JUNIOR Final Result documented in this encounter Visit Diagnoses Not on filedocumented in this encounter Care Teams Bobbin Winder Tender Relationship Specialty Start Date End Date Andre Aden MD [address] [facility] [address] [place] [address] PCP - General Family Medicine 04/05/22 Paco Rivas MD [address] [place] [address] Consulting Physician Rheumatology 09/05/24 documented as of this encounter
--- OUTSIDE RECORDS SUMMARY | 2024-11-23 00:18 | XMS_ITS | Clinical Summary ---
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 Gender Identity Not on file Sexual Orientation Not on file Last Filed Vital Signs Vital Sign Reading Time Taken Comments Blood Pressure 137/77 05/16/2023 3:53 PM CDT Pulse 78 05/16/2023 3:53 PM CDT Temperature 36.2 C (97.1 F) 05/16/2023 3:53 PM CDT Respiratory Rate 18 05/16/2023 3:53 PM CDT Oxygen Saturation 98% 05/16/2023 3:53 PM CDT Inhaled Oxygen Concentration - - Weight 131.1 kg (289 lb) 05/16/2023 3:53 PM CDT Height 170.2 cm (5' 7 ) 09/27/2022 1:37 PM ADAPTED PHYSICAL EDUCATION TEACHER Body Mass Index 45.26 09/27/2022 1:37 PM ADAPTED PHYSICAL EDUCATION TEACHER Plan of Treatment Health Maintenance Due Date Last Done Comments DTAP/TDAP/TD VACCINES (1 - Tdap) 1997 HEPATITIS B VACCINES (1 of 3 - 19+ 3-dose series) 1997 HPV/Cotest (21-29) 12/05/1999 CERVICAL CANCER SCREENING 2008 HPV/Cotest (30-65) 2008 PAP SMEAR 2008 BREAST CANCER SCREENING 2018 COLORECTAL SCREENING 12/05/2023 Colorectal Cancer Screening 12/05/2023 FIT-DNA Q 3 years 12/05/2023 FIT/FOBT Q 1 year 12/05/2023 Flex Sig/CT Colonography Q 5 years 12/05/2023 INFLUENZA VACCINE (#1) 2024 HPV VACCINES Aged Out No longer eligi ble based on patient's age to complete this topic Insurance BCBS BLUE ACCESS/TRUE BLUE PPO [facility] BLUE ACCESS/TRUE BLUE PPO Care Teams Picker Machine Operator Relationship Specialty Start Date End Date Andre Aden MD [address] [email or web address] [address] [place] [id number] PCP - General Family Practice 09/27/22
--- OUTSIDE RECORDS SUMMARY | 2024-11-23 00:18 | XMS_ITS | Encounter Summary ---
Author Organization [facility] Address [address] [place] [address] Phone Care Team Providers Care Manager Of Regulatory Affairs Name Role Phone Andre Aden MD Primary Care Provider Paco Rivas MD Unavailable [phone] Encounter Details Date Type Department Care Team (Late st Contact Info) Description 11/22/2024 Results Follow-Up [facility] [address] [place] [address] Sandi Jose PA [address] [place] [address] Social History Tobacco Use Types Packs/Day Years Used Date Smoking Tobacco: Never Comments Unknown Sex and Gender Information Value Date Recorded Sex Assigned at Not on file Legal 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
--- OUTSIDE RECORDS SUMMARY | 2024-11-23 00:18 | XMS_ITS | Clinical Summary ---
Author Organization [facility] Address [address] [facility] [address] [place] [address] Phone Care Team Providers Care Forest Firefighter Name Role Phone Andre Aden MD Primary Care Provider Paco Rivas MD Unavailable [phone] Allergies Active Allergy Reactions Criticality Noted Date [...] Sooner if needed. Seen with Dr. Rivas. Encounters Date Type Department Care Team Description 11/22/2024 Results Follow-Up [facility] [address] [place] [phone] Sandi Jose PA 11/22/2024 Orders Only [facility] [address] [place] [phone] Sandi Jose PA 11/19/2024 Telephone [facility] [address] [place] [phone] Ita Case MRI Approved 11/05/2024 3:45 PM CDT Office Visit [facility] [address] [place] [phone] Sandi Jose PA Polyarthralgia (Primary Dx); Sacroiliitis; Localized primary osteoarthritis of carpometacarpal (CMC) joint, unspecified laterality 11/05/[address] [phone] Jos Rodriguez 10/24/2024 Results Follow-Up [address] [phone] Sandi Jose PA 10/24/2024 Orders Only [address] [phone] Sandi Jose PA 10/22/2024 9:30 AM CDT Office Visit [address] [phone] Sandi Jose PA Polyarthralgia (Primary Dx) 10/22/2024 Results Follow-Up [address] [phone] Sandi Jose PA 09/11/[address] [phone] Obed Cadet New Patient Appt from Last 3 Months Surgical History Surgery Date Site/Laterality Comments PLANTAR FASCIECTOMY 08/14/2021 Right ABLATION 04/16/2024 TONSILLECTOMY Social History Tobacco Use Types Packs/Day Years Used Date Smoking Tobacco: Never Tobacco Cessation:Counseling Given: Not Answered Comments Unknown Sex and Gender Information Value Date Recorded Sex Assigned at Not on file 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 Gender Identity Not on file Sexual Orientation Not on file Obstetrics History Last Filed Vital Signs Vital Sign Reading [...] 11/05/2024 3:32 PM CDT Plan of Treatment Health Maintenance Due Date Last Done Comments Cervical Cancer Screening 1978 Colon Cancer Screening-Colonoscopy 1978 Depression Screening 1978 Hepatitis C Screening 1978 DTaP/Tdap/Td Vaccine (1 - Tdap) 1989 Hepatitis B Screening 1996 Regular Well Visit/Exam 18-64 1996 Covid-19 Vaccine (3 2023-2 5 season) 2024 10/25/2020, 09/27/2020 Influenza Vaccine (Season Ended) 2025 Breast Cancer Screening-Mammogram 04/17/2025 04/17/2024 HPV Vaccines Aged Out No longer eligi ble based on patient's age to complete this topic Pneumococcal vaccine <65 Aged Out No longer eligible based on patient's age to complete this topic Procedures Procedure Name Priority Date/Time Associated Diagnosis [...] Lower Extremities, Foot Right Radiogra phic Imaging us Sandi JUNIOR IMG XR PROCEDURES Fin al Result * (ABNORMAL) CBC with auto differential (10/22/2024 10:54 AM CDT) Pathologist [facility] WBC 10.9(H) 3.8 - 10.8 Thousand/u L [...] BLOOD ORDERABLES Final Result Performing Organization Address City/[facility]/ZIP Co de Phone Number [facility] [address] [place] [address] * (ABNORMAL) Erythrocyte sedimentation rate (10/22/2024 10:54 AM CDT) [facility] Erythrocyte sedimentation rate 22(H) < OR = 20 mm/h [facility] Blood 10/22/2024 10:5 4 AM CDT 10/22/2024 10:55 AM CDT Sandi JUNIOR LAB BLOOD ORDERABLES Final Result Performing Organization Address [facility] Co de Phone Number [facility] [address] [place] [address] * (ABNORMAL) CRP (acute phase) (10/22/2024 10:54 AM CDT) C-RP 32.7(H) <8.0 mg/L [facility] Blood 10/22/2024 10:5 4 AM CDT 10/22/2024 10:55 AM CDT Sandi JUNIOR LAB BLOOD ORDERABLES Final Result [facility] [address] [phone] * Comprehensive metabolic panel (10/22/2024 10:54 AM CDT) Glucose 84 65 - 99 mg/dL [facility] [...] LAB BLOOD ORDERABLES Final Result [facility] [address], [place] [phone] from Last 3 Months Insurance Chef [employer]ov[employer] Care Teams Forest Firefighter Relationship Specialty Start Date End Date Andre Aden MD [address] [place], [place] [id number] PCP - General Family Medicine 04/05/22 Paco Rivas MD [address] [place] [address] Consulting Physician Rheumatology 09/05/24
--- OUTSIDE RECORDS SUMMARY | 2024-11-23 00:19 | XMS_ITS | Clinical Summary ---
Author Organization [facility] Address [address] [place] [address] Care Team Providers Care Boring Machine Operator Name Role Phone Andre Aden MD Primary Care Provider Source Comments [facility],non-owned Affiliates and Associated Physician Practices is amultiple site organization consisting of ambulatory clinics and hospital sitesin [place], [place], [place] and [place]. This disclosure is being madepursuant to the Care Everywhere program and may not contain all information available regarding this patient. Last updated 18.[facility] Allergies Active Allergy Reactions Criticality Noted Date Comments Orphenadrine Unknown 11/02/2023 Promethazine Urticaria,Rash Medium 09/20/2017 Pt reports reaction occurred as a child Medications * Be aware that medications may not be up to date on this document. Alwaysverify current medications with the patient. levonorgestrel- ethinyl estradiol (ENPRESSE-28) tablet Take 1 (one) tablet [...] 0.9% NaCl IV 0.9 % 250 mL Active methotrexate 2.5 MG tablet TAKE 6 TABLETS [...] drink = 0.6 oz pur e alcohol) Comments No Sex and Gender Information Value Date Recorded Sex Assigned at Not on file Legal Sex Female 10:11 AM CDT Gender Identity Not on file Sexual Orientation Not on file Last Filed Vital Signs Vital Sign Reading Time Taken Comments Blood Pressure 120/76 09/26/2017 10:13 AM PLASTIC MIXER Pulse 85 09/26/2017 10:13 AM PLASTIC MIXER Temperature 37.1 C (98.8 F) 09/26/2017 10:13 AM PLASTIC MIXER Respiratory Rate 16 09/26/2017 10:13 AM PLASTIC MIXER Oxygen Saturation 99% 09/26/2017 10:13 AM PLASTIC MIXER Inhaled Oxygen Concentration - - Weight 104.3 kg (230 lb) 09/26/2017 10:13 AM PLASTIC MIXER Height 170.2 cm (5' 7 ) 09/26/2017 10:13 AM PLASTIC MIXER Body Mass Index 36.02 09/26/2017 10:13 AM PLASTIC MIXER Plan of Treatment Upcoming Encounters Date Type Department Care Team (Late st Contact Info) Description 12/05/2024 3:20 PM CDT Office Visit [facility] [address] [place] [address], [facility] [place] [phone] Christiano Stokes MD [address] [place] [address] [address] [place] [phone] Health Maintenance Due Date Last Done Comments [...] - 19+ 3-dose series) 1997 COVID-19 VACCINE (1 - 2023-2 5 season) 2024 DEPRESSION SCREENING 08/08/2024 INFLUENZA VACCINE (Season Ended) 2025 PAP SMEAR 10/12/2026 10/13/2023 ZOSTER VACCINE (1 of 2) 2028 HIB VACCINE Aged Out No longer eligi ble based on patient's age to complete this topic HPV VACCINE Aged Out No longer eligi ble based on patient's age to complete this topic MENINGOCOCCAL (Group B) VACC INE SHARED DECISION-MAKING Aged Out No longer eligibl e based on patient's age to complete this topic MENINGOCOCCAL GROUPS A/C/Y/W VACCINE Aged Out No longer eligible b ased on patient's age to complete this topic PNEUMOCOCCAL VACCINE Aged Out No long er eligible based on patient's age to complete this topic Insurance ANTHEM ANTHEM * Guarantor: EVELIN BRIZUELA Account Type Relation to Patient Date of Phone Billing Address Personal/Family [address] [place] [address] BCBS/BLUE BLUE CROSS BLUE [place]ELD [place] SELF PAY NO INSURANCE Member Subscriber Plan / Payer (Ef fective for All Dates) Name:Evelin Brizuela Member ID:Not on file Relation to Subscriber:Not on file Name:EVELIN BRIZUELA Subscriber ID:Not on file Address: Erich MARIE [address] [place] [id number] Payer ID:Not on file Group ID:Not on file Type:Self Pay Address: [place], [place] * Guarantor: EVELIN BRIZUELA Account Type Relation to Patient Date of Phone Billing Address Personal/Family Erich MARIE [address] [place] [phone] BCBS/[place]UE [place]UE [place] SELF [place] INSURANCE Member Subscriber Plan / Payer (Ef fective for All Dates) Name:Evelin Brizuela L Member ID:Not on file Relation to Subscriber:Not on file Name:EVELIN BRIZUELA Subscriber ID:Not on file Address: Erich MARIE [address] [place] [address] Payer ID:Not on file Group ID:Not on file Type:Self Pay Address: [place], [place] * Guarantor: EVELIN BRIZUELA Account Type Relation to Patient Date of Phone Billing Address Personal/Family Erich MARIE [address] [place] [address] BCBS/BLUE BLUE [place]OSS BL[place] SELF [place]Y NO INSURANCE Member Subscriber Plan / Payer (Ef fective for All Dates) Name:Gelacio Evelin Rios Member ID:Not on file Relation to Subscriber:Not on file Name:BRIZUELAEVELIN Subscriber ID:Not on file Address: Erich MARIE [address] [place] [address] Payer ID:Not on file Group ID:Not on file Type:Self Pay Address: [place], [place] Care Teams Boring Machine Operator Relationship Specialty Start Date End Date Andre Aden MD [address] [place] [address] PCP - General 05/31/18
--- OUTSIDE RECORDS SUMMARY | 2024-11-23 00:19 | XMS_ITS | Encounter Summary ---
Author Organization [facility] Address [address] [place] [address] Phone Care Team Providers Care Vat Tender Name Role Phone Andre Aden MD Primary Care Provider Paco Rivas MD Unavailable [phone] Encounter Details Date Type Department Care Team (Late st Contact Info) Description 10/24/2024 Results Follow-Up [facility] [address] [place] [address] Sandi Jose PA [address] [place] [address] Social History Tobacco Use Types Packs/Day Years Used Date Smoking Tobacco: Never Comments Unknown Sex and Gender Information Value Date Recorded Sex Assigned at Not on file Legal Sex Female 7:59 AM INSURANCE CHECKER Gender Identity Not on file Sexual Orientation Not on file documented as of this encounter Plan of Treatment Not on file documented as of this encounter Visit Diagnoses Not on filedocumented in this encounter Care Teams Vat Tender Relationship Specialty Start Date End Date Andre Aden MD [address] [facility] [address] [place] [address] PCP - General Family Medicine 04/05/22 Paco Rivas MD [address] [place] [address] Consulting Physician Rheumatology 09/05/24 documented as of this encounter
--- OUTSIDE RECORDS SUMMARY | 2024-11-23 00:19 | XMS_ITS | Continuity of Care Document ---
Author Organization [facility] Address [address] [place] [address] [address] [place] [address] Phone Care Team Providers Care Inspectors And Regulatory Officers Name Role Phone Margarita PT, RAJWINDERT, Manjeet Unavailable Unavailable Procedures Procedure Date Therapeutic Activities Neuromuscular Re-Ed Therapeutic Exercise Therapeutic Activities Neuromuscular Re-Ed Therapeutic Exercise Therapeutic Activities Neuromuscular Re-Ed Therapeutic Exercise Therapeutic Activities Neuromuscular Re-Ed Therapeutic Exercise Therapeutic Activities Therapeutic Exercise Neuromuscular Re-Ed Therapeutic Activities Neuromuscular Re-Ed Therapeutic Exercise Therapeutic Activities Therapeutic Exercise Neuromuscular Re-Ed Therapeutic Activities Neuromuscular Re-Ed Therapeutic Exercise Therapeutic Activities Neuromuscular Re-Ed Therapeutic Exercise Therapeutic Activities Neuromuscular Re-Ed Therapeutic Exercise Therapeutic Activities Neuromuscular Re-Ed Therapeutic Exercise PT Evaluation Moderate Complexity Therapeutic Exercise Advance Directives Directive Yes / No Effective Date File Name No Information Encounters Encounter Description Practice Location Reason(s) For Visit Diagnoses Date Provider Providers Copied on Encounter [facility], [address], [place], [place], [id number], [place] tel:[phone] [place] No Information 9 Makler Luke. . Referring Provider: Juve Bustos, [address], [place], [address]. tel:[phone] [facility], [place], [place], [id number], [place] tel:[phone] [place] No Information 9 Makler Luke. . Referring Provider: Juve Bustos, [address], [place], [address]. tel:[phone] [facility] [address], [place], [place], [id number], [place] tel:[phone] [place] No Information 9 Makler Luke. . Referring Provider: Juve Bustos, [address], [place], [address]. tel:[phone] [facility] [address], [place], [place], [id number], [place] tel:[phone] [place] No Information 9 Makler Luke. . Referring Provider: Juve Bustos, [address], [place], [address]. tel:[phone] [facility] [address], [place], [place], [id number], [place] tel:[phone] [place] No Information 9 Makler Luke. . Referring Provider: Juve Bustos, [address], [place], [address]. tel:[phone] [facility], [place], [place], [address], [place] tel:[phone] [place] No Information 9 Angelia Cuello. . Referring Provider: Juve Bustos [address], [place], [address]. tel:[phone] [facility], [place], [place], [address], [place] tel:[phone] [place] No Information 9 Makler Luke. . Referring Provider: Juve Bustos, [address], [place], [address]. tel:[phone] [facility], [address], [place], [place], [address], [place] tel:[phone] [place] No Information 9 Makler Luke. . Referring Provider: Juve Bustos, [address], [place], [address]. tel:[phone] [facility] [address], [place], [place], [id number], [place] tel:[phone] [place] No Information 9 Makler Luke. . Referring Provider: Juve Bustos, [address], [place], [address]. tel:[phone] [facility] [address], [place], [place], [address], [place] tel:[phone] [place] No Information 9 Makler Luke. . Referring Provider: Juve Bustos, [address], [place], [address]. tel:[phone] [facility] [address], [place], [place], [id number], [place] tel:[phone] [place] No Information 9 Ramiro Huynh [place], [place], [place]. Referring Provider: Juve Bustos, [address], [place], [address]. tel:[phone] [facility] [address], [place], [place], [address], [place] tel:[phone] [place] No Information 9 Makler Luke. . Referring Provider: Juve Bustos, [address], [place], [address]. tel:[phone] Family History Family Member Type Diagnosis Age At Onset No Information Payers Payer name Insurance type Covered green party ID Authorhina rosa(s) [facility] [id number] Social History Type Description Quantity Date Captured Comments Sex Female Smoking Status No Information Chief Complaint And Reason For Visit No Information Reason For Referral Reason For Referral No Information History Of Present Illness Encounter Date Complaint History Of Prese nt Illness No Information Functional Status Date Functional Assessmen t No Information Instructions Date Instruction Additional Infor mation No Information Assessments Type Assessment Date No Information Patient Care Teams Name Effective Dates (start - stop) Status Members No Information
--- OUTSIDE RECORDS SUMMARY | 2024-11-23 00:19 | XMS_ITS | Data Portability ---
Author Organization 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 Plan of Treatment Reminders Order Date Submit Date Provider Last Modified By Organization Details Last Modified Time Details Appointments None recorded. Lab None recorded. Referral None recorded. Procedures None recorded. Surgeries None recorded. Imaging US, pelvis [address], [address], [address], [place], [address], 19:27:21 US, transvagina l [address], [facility] [address], [place], [address], 19:27:21 Medication Orders Aygestin 5 mg tablet 2023 024 [facility] #[id number], [address] [place], [address], 11:04:28 Patient TargetsNo targets recorded. Patient InstructionsNo instructions recorded. Reason for Referral None Reported. Results Created Date Observation Date Name Description Value Unit Range Abnormal Flag Note LastModifiedBy Organization Detail LastModifiedTime 10/13/19 24 10/13/2023 IMAGE GUIDE D PAP AND HPV REGAR DLESS image guided Pap, HPV regardless of Pap result SEE RESULT S BELOW CASE REPOR T: Cytol ogy Gynec ologi cedric Repor t Case: [id number] Autho henok woodruff Provi robert: Araceli jhon , Tawanna Kovacs cted: 10/12 1113 FORM LAYER Order ing Locat ion: [place] Patho juan Gutierres misael: 10/13 0655 First Scree n: Asim jackson, Bharati , CT Rescr een: Sherin Carlisle Speci men: Ama valleg Pap - Image d, Cervi x STATE MENT OF ADEQU ACY: Satis facto ry for evalu ation Trans forma tion zone compo nent absen t. The absen ce of an endoc ervic al compo nent was confi rmed by an addit ionmatt mejia. FINAL DIAGN OSIS: Negat mesha for Intra epith elial Lesio alfred or Efrain elena (NIL) . Elect nicole gonzalez zachariah d by Sherin Carlisle on 2023 at 3:44 PM ----- ----- ----- ----- ----- ----- ----- ----- ----- ----- ----- ----- ----- ----- ----- ----- ----- ---- HPV RESUL TS: HPV mRNA E6/E7 : No HPV mRNA Detec jaime NOTE: This high risk HPV mRNA assay detec ts fourt een high- risk HPV types (16, 18, 31, 33, 35, 39, 45, 51, 52, 56, 58, 59, 66, 68) witho ut diffe renti ation . COMME NT: This speci men was revie wed by a Cytot echno logis t and/o r Patho logis t (as indic ated in this repor t) after evalu ation using the Thinp rep Imagi ng Syste m. CLINI CEDRIC INFOR MATIO N: Menst rual Statu s: 09/14 LMP (if appli cable ): Clini cedric Histo ry/Pr eviou s Pap: Type of Neopl lonny (if appli cable ): Signi fican t Clini cedric Findi ngs: Other Histo ry: Hormo shilpi (if appli cable ): PAP EDUCA MALKA L NOTE: The Pap Test is a scree kody test with an inher ent false negat mesha rate. Liqui d-bas ed sampl ing may decre ase, but will not elimi fadia, false negat mesha resul ts. A negat mesha resul t does not precl ude the prese nce and/o r devel opmen t of disea se, since the prese nce of abnor mal cells in the sampl e depen ds on the locat ion of the lesio n and sampl ing techn ique. Devang nued regul ar scree kody is the best metho d of cance r preve ntion . If repor jaime cytol ogic findi ng do not corre late with physi cedric and/o r histo rical findi ngs, furth er inves tigat ion is recom eldon d, as clini stephen warrloretta nted. Not Available [facility] (Lab) [address] [facility], [place], [address], 10/18/2023 16:47:54 11/07/19 24 11/07/2023 SURGI CEDRIC PATHO LOGY surgical pathology SEE RESULT S BELOW CASE REPOR T: Surgi cedric Patho logy Repor t Case: [id number] Autho hosseinalfred kacy Provi robert: Cait Tony MD Colle cted: 11/06 1540 Order ing Locat ion: [place] Patho logy Recei misael: 11/08 0155 Patho logis t: José [address], MD Speci men: Endom etriu m, EMB FINAL DIAGN OSIS: Endom etriu m; biops y: Benodilon n late secre nancy jewellm etriu m Elect nicole gonzalez zachariah d by José [address], MD on 024 at 2:49 PM ----- ----- ----- ----- ----- ----- ----- ----- ----- ----- ----- ----- ----- ----- ----- ----- ----- ---- CLINI CEDRCI INFOR KEVON N: [id number] 9 MICRO SCOPI C DESCR IPTIO N: A micro scopi c exami natio n was perfo rmed. GROSS DESCR IPTIO N: A. Endom etriu m. The speci men is label ed with the patie nt's name, justenrakan akinsryan cs and EMB . Recei misael in forma jesús is a 2.5 x 1.8 x 0.2 [address] aggre gate of pink- reis tissu e. The entir e speci ailin is submi tted in one casse tte. Gross ed by Jeri mccullough Not Available [facility] (Lab) [address], [place], [address], 11/09/2023 15:52:58 11/01/19 24 11/01/2023 US, pelvi s No observ ation record ed. [email or web address] [facility] [address], [place], [address], 11/01/2023 13:12:45 11/01/19 24 11/01/2023 US, trans vagin al No observ ation record ed. [email or web address] [facility] [address], [place], [address], 11/01/2023 13:12:34 11/01/19 24 11/01/2023 US, pelvi s No observ ation record ed. [email or web address], [facility], [place], [address], 11/01/2023 23:23:46 04/17/20 24 04/17/2024 MAMMO , emiliae kody, bilat eral No observ ation record ed. [facility] [address] [address], [place], [address], 05/06/2024 10:44:39 Result Notes None recorded. Problems Name Problem SNOMED Code Status Onset Date Resolution Date Notes Provider Name and Address Organization Details Recorded Time Body mass index 30+ - obesity 447338423 Completed 201408/27/2021 Body mass index (BMI) 36.0-36. 9, adult;Re corded Elsewher e: No Locat ion: [facility] ource: EHR Latexer sinan: N Jaxon ce ID: 0001 Enzo lable Time: 04:45:00 PM Tuyet leija [facility] 2 16:47:53 Speciali zed medical examinat ion Completed 201008/27/2021 Gynecolo gical Examinat ion;Claude rded Elsewher e: No Locat ion: [facility] ource: EHR Latexer sinan: N Dahianati ce ID: 0001 Enzo lable Time: 05:00:00 PM Tuyet leija [facility] 2 16:48:20 Screenin g for malignan t neoplasm of cervix Completed 201508/27/2021 Screenin g for malignan t neoplasm s of the cervix;R ecorded Elsewher e: No Locat ion: [facility] ource: EHR Latexer sinan: N Jaxon ce ID: 0001 Enzo lable Time: 01:00:00 PM Tuyet leija [facility] 2 16:48:[address] Concept Completed 201808/27/2021 Encntr for general adult medical exam w/o abnormal findings ;Recorde d Elsewher e: No Locat ion: [facility] ource: EHR Latexer sinan: N Dahianati ce ID: 0001 Enzo lable Time: 04:15:00 PM Tuyet leija [facility] 2 16:48:[address] Concept Completed 201508/27/2021 Encntr for medical assistant ob gyn exam (general ) (routine ) w/o abn findings ;Recorde d Elsewher e: No Locat ion: [facility] ource: EHR Latexer sinan: N Dahianati ce ID: 0001 Enzo lable Time: 01:00:00 PM Tuyet leija [facility] 2 16:48:18 Goiter [id number] Completed 201308/27/2021 Enlarged thyroid; Recorded Elsewher e: No Locat ion: [facility] ource: [facility] sinan: N Practi ce ID: 0001 Enzo lable Time: 09:00:00 AM Tuyet Askew liss [facility] 2 16:47:56 Obesity 601795142 Completed 201308/27/2021 Obesity; Recorded Elsewher e: No Locat ion: [facility] ource: EHR Latexer sinan: N Dahianati ce ID: 0001 Enzo lable Time: 09:00:00 AM Tuyet Askew liss [facility] 2 16:48:02 Malaise and fatigue 794252757 Completed 201308/27/2021 Fatigue / Malaise; Recorded Elsewher e: No Locat ion: [facility] ource: [facility] sinan: N Dahianati ce ID: 0001 Enzo lable Time: 09:00:00 AM Tuyet leija [facility] 2 16:47:59 Screenin g mammogra phy Completed 201908/27/2021 Encntr screen mammogra m for malignan t neoplasm of breast;R ecorded Elsewher e: No Locat ion: [facility] ource: [facility] sinan: N Dahianati ce ID: 0001 Enzo lable Time: 01:54:23 PM Tuyet leija [facility] 2 16:48:10 Screenin g for malignan t neoplasm of rectum Completed 201908/27/2021 Encounte r for screenin g for malignan t neoplasm of rectum;Dulce Maria henry ID: 0001 Tuyet leija [facility] 16:48:07 Problem Notes None recorded. Procedures Surgical History Date Name Laterality Status Provider Name and Address Organization Details Recorded Time 04/17/20 24 Date of Last Mammogram completed Nadine Freedman [facility] 05/04/2024 16:43:50 04/16/20 24 LAPAROSCOPIC TUBAL LIGATION AND ABLATION (SURG) completed Marcie Cole [facility] 04/16/2024 10:44:38 12/30/19 24 LAPAROSCOPIC TUBAL LIGATION AND ABLATION (SURG) completed Eduardo Luke [facility] 12/31/2023 10:48:05 11/07/19 24 Endometrial Biopsy completed FARIDA HOU MD [address], [place], [address], [facility] 11/07/2023 15:44:33 10/13/19 24 Date of Last Pap Smear completed Nadine Freedman [facility] 10/13/2023 10:56:49 08/14/19 22 plantar fasciectomy completed Tuyet Askew [facility] 09/10/2021 14:06:10 08/08/18 90 Tonsillectomy completed Tuyet Askew [facility] 09/10/2021 14:05:55 Tonsillectomy completed Marcie Cole [facility] 09/07/2022 16:55:55 Imaging Results Imaging Date Name Status LastModified by Organization Details LastModified Time 11/01/2023 US, pelvis completed [email or web address] [facility] [address], [place], [address], 11/01/2023 13:12:45 11/01/2023 US, transvaginal completed [email or web address] [facility] [address], [place], [address], 11/01/2023 13:12:34 11/01/2023 US, pelvis completed [email or web address] [address], [place], [address], 11/01/2023 23:23:46 04/17/2024 MAMMO, screening, bilateral completed [facility] [address], [place], [address], 05/06/2024 10:44:39 Procedure Notes None recorded. Medical Equipment None Reported. Allergies Allergen ID Allergen Name Allergen Category Reaction Reaction Severity Criticality Documentation Date Start Date Code Code System Note Provider Name and Address Organization Details Recorded Time 40270 diphenhyd ramine medicatio n Not available Not available Not available 08/23/2020 3498 RxNorm Sheryl leija, [facility] 09:36:21 46269 orphenadr ine Not available Not available Not available Not available 08/25/2020 7715 RxNorm Sheryl leija [facility] 09:36:52 20309 Phenergan medicatio n Not available Not available Not available 08/27/2021 28240 8 RxNorm Tuyet leija [facility] 2 16:47:10 Medications Name Sig Start Date Stop Date Status Note LastModified by Organization Details LastModified Time celecoxib 200 mg capsule TAKE 1 CAPSULE BY MOUTH TWICE A DAY NEEDED 10/30 completed Not Available Not Available Not Available buspirone 5 mg tablet TAKE 2 TABLETS BY MOUTH TWICE A DAY 09/07 completed Not Available Not Available Not Available fluconazo le 150 mg tablet TAKE 1 TABLET BY MOUTH ONCE SINGLE DOSE, CAN REPEAT AFTER 72 HOURS 09/07 completed Not Available Not Available Not Available hydrocodo ne 5 mg-acetam inophen 325 mg tablet TAKE 1 TABLET BY MOUTH EVERY 4 HOURS NEEDED FOR PAIN RATED 4-6 05/04 completed Not Available Not Available Not Available prednison e 5 mg tablet TAKE 2 TABLETS BY MOUTH EVERY DAY FOR 7 DAYS NEEDED FOR FLARE UPS 10/12 completed Not Available Not Available Not Available sulfasala zine 500 mg tablet,de layed release TAKE 3 TABLETS BY ORAL ROUTE 2 TIMES A DAY FOR 90 DAYS active Not Available Not Available No t Available omeprazol e 40 mg capsule,d elayed release TAKE 1 CAPSULE BY ORAL ROUTE DAILY active Not Available Not Available No t Available tramadol 50 mg tablet TAKE 1 TAB BY MOUTH WITH OVER THE COUNTER TYLENOL 3 TIMES DAILY FOR PAIN CONTROL 05/04 completed Not Available Not Available Not Available cefadroxi l 500 mg capsule TAKE 1 CAPSULE BY MOUTH EVERY 12 HOURS UNTIL GONE 09/07 completed Not Available Not Available Not Available oxycodone -acetamin ophen 5 mg-325 mg tablet 09/07 completed Not Available Not Available Not Available methotrex ate sodium 2.5 mg tablet TAKE 6 TABLETS BY MOUTH ONCE WEEKLY active Not Available Not Available No t Available diclofena c sodium 75 mg tablet,de layed release 05/04 completed Not Available Not Available Not Available folic acid 1 mg tablet TAKE 1 TABLET BY MOUTH EVERY DAY active Not Available Not Available No t Available norethind rene acetate 5 mg tablet TAKE 1 TABLET BY MOUTH TWICE A DAY FOR 90 DAYS active Not Available Not Available No t Available dexametha sone sodium phosphate 4 mg/mL injection solution INJECT 1 ML PER SESSION DIRECTED 09/07 completed Not Available Not Available Not Available methylpre dnisolone 4 mg tablets in a dose pack TAKE 6 TABLETS ON DAY 1 DIRECTED ON PACKAGE AND DECREASE BY 1 TAB EACH DAY FOR A TOTAL OF 6 DAYS 10/12 completed Not Available Not Available Not Available indometha santana ER 75 mg capsule,e xtended release TAKE 1 CAPSULE BY MOUTH TWICE A DAY WITH FOOD active Not Available Not Available No t Available cefdinir 300 mg capsule TAKE 1 CAPSULE BY MOUTH EVERY 12 HOURS FOR 7 DAYS 05/04 completed Not Available Not Available Not Available escitalop turner 10 mg tablet TAKE 1 TABLET BY MOUTH DAILY 09/07 completed Not Available Not Available Not Available escitalop turnre 20 mg tablet TAKE 1 TABLET BY MOUTH EVERY DAY active Not Available Not Available No t Available cyclobenz aprine 5 mg tablet TAKE 1 TABLETS BY MOUTH EVERY EVENING active Not Available Not Available No t Available bupropion HCl XL 150 mg 24 hr tablet, extended release 08/27 completed Not Available Not Available Not Available Enpresse 50-30 (6)/75-40 (5)/125-3 0(10) tablet TAKE 1 TABLET BY MOUTH EVERY DAY 05/04 completed Not Available Not Available Not Available magnesium active Not Available Not Imani ilable Not Available calcium active Not Available Not Avail able Not Available Vitamin D active Not Available Not Imani ilable Not Available Tylenol active Not Available Not Avail able Not Available Simponi active once every 8wks infusion Not Available Not Available Not Available Multi Vitamin active Not Available Not Available Not Available Paxlovid 300 mg (150 mg x 2)-100 mg tablets in a dose pack TAKE 2 TABLETS (NIRMATR YAHIR) AND TAKE 1 TABLET (RITONAV IR) BY MOUTH TWICE A DAY FOR 5 DAYS 10/12 completed Not Available Not Available Not Available Vitals Date Recorded Body height Body mass index (BMI) Body weight Systolic blood pressure Diastolic blood pressure Provider Name and Address Organization Details Last Updated DateTime 11/07/2023 170.18 cm 45.8 kg/m2 606185.6 9 g 129 mm[Hg] 88 mm[Hg] [facility] 4 14:46:02 Date Recorded Body height Body mass index (BMI) Body weight Systolic blood pressure Diastolic blood pressure Provider Name and Address Organization Details Last Updated DateTime 12/13/2023 170.18 cm 46.6 kg/m2 012324.0 9 g 147 mm[Hg] 88 mm[Hg] [facility] 4 17:58:29 Date Recorded Body height Body mass index (BMI) Body weight Systolic blood pressure Diastolic blood pressure Provider Name and Address Organization Details Last Updated DateTime 01/06/2024 170.18 cm 45.5 kg/m2 745840.9 4 g 132 mm[Hg] 82 mm[Hg] [facility] 4 09:25:06 Date Recorded Body height Body mass index (BMI) Body weight Systolic blood pressure Diastolic blood pressure Provider Name and Address Organization Details Last Updated DateTime 05/04/2024 170.18 cm 45.1 kg/m2 570507.6 g 142 mm[Hg] 83 mm[Hg] Nadine Tano [facility] 16:42:26 Social History Question Answer Notes LastModified by Organizat ion Details LastModified Time Tobacco Smoking Status Never Smoker Marcie Cole null, [facility] 09/07/2022 16:55:52 Do You Have An Advance Directive? No [email or web address] Information n ot available 08/27/2021 What Is Your Level Of Alcohol Consumption? Moderate Information not available 08/25/2020 If You Are , What Was Your Level Of Alcohol Consumption Prior To ? None Information not available 09/07/2022 How Many Years Have You Consumed Alcohol? 21 [email or web address] Information not available 11/07/2023 Are You Blind Or Do You Have Difficulty Seeing? No [email or web address] Information n ot available 08/27/2021 What Is Your Level Of Caffeine Consumption? Occasional Information not available 08/25/2020 How Much Tobacco Do You Chew? None [email or web address] Information not available 08/27/2021 In The 14 Days Before Symptom Onset, Have You Had Close Contact With A Laboratory-confirm ed COVID-19 While That Case Was Ill? No [email or web address] Information n ot available 08/27/2021 In The 14 Days Before Symptom Onset, Have You Had Close Contact With A Person Who Is Under Investigation For COVID-19 While That Person Was Ill? No [email or web address] Information not available 08/27/2021 Have You Been To An Area Known To Be High Risk For COVID-19? No [email or web address] Information not available 08/27/2021 Are You Deaf Or Do You Have Serious Difficulty Hearing? No [email or web address] Information not available 08/27/2021 What Type Of Diet Are You Following? REGULAR Information n ot available 08/27/2021 What Is The Highest Grade Or Level Of School You Have Completed Or The Highest Degree You Have Received? 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 0 Information not available 09/07/2022 Are There Any Guns Present In Your Home? Yes [email or web address] Information not available 08/27/2021 Have You Ever Been Counseled For Unhealthy Alcohol Use? No Information not available 09/07/2022 Do You Use Protection During Sex? No [email or web address] Information not available 08/27/2021 Do You Use Your Seat Belt Or Car Seat Routinely? Yes [email or web address] Information not available 08/27/2021 Do You Have Smoke And Carbon Monoxide Detectors In Your Home? Yes [email or web address] Information not available 08/27/2021 How Much Tobacco Do You Smoke? No [email or web address] Information not available 08/27/2021 Do You Feel Stressed (tense, Restless, Nervous, Or Anxious, Or Unable To Sleep At Night)? [id number] Information not available 09/07/2022 Do You Use Any Illicit Or Recreational Drugs? No Information not available 08/25/2020 Do You Use Sunscreen Routinely? Yes [email or web address] Information not available 08/27/2021 Has Tobacco Cessation Counseling Been Provided? No Information not available 09/07/2022 Have You Used IV Drugs? No [email or web address] Information not available 08/27/2021 Do You Or Have You Ever Used Any Other Forms Of Tobacco Or Nicotine? No Information not available 09/07/2022 How Many Days In The Past Year Have You Consumed 4 Or More Drinks? 50 Information not available 09/07/2022 Sex: Unknown Functional Status Question Answer Note LastModified by Organizat ion Details LastModified Time Do you have difficulty walking or climbing stairs? No Information not available 09/07/2022 Are you able to walk? YESWOREST [email or web address] Information not available 08/27/2021 Are you able to care for yourself? Yes Information not available 09/07/2022 Do you have difficulty dressing or bathing? No Information not available 09/07/2022 What is your exercise level? None Information not available 08/25/2020 Mental Status None recorded. Family History Relationship Description Onset Age of this Age Resolved Age Notes LastModified by Organization Details LastModified Time Father Hypertensive disorder Not available 2020 09:11:23 Unspecified Relation Malignant neoplasm of skin 50 [email or web address] Not available 2023 09:15:18 Medical History Condition Response Allergies (Food, seasonal, environmental ) Y Other Y Breast Cancer N Drug/Latex Allergies/Reactions Y Blood Transfusion N Dermatologic Disorders N Lung Disease N Defects or Inherited Disease N Breast Problem N Gestational Diabetes N Hematologic disorders N Anesthesia Complications N History of STI N Deep Vein Thrombosis N Polycystic ovary syndrome N Anxiety Disorder Y Autoimmune disease N Arthritis N Infertility N Polyps N Acid Reflux (GERD) N History of abnormal pap Y Cancer N Stroke N Varicosities N Neurologic/Epilepsy N Endometriosis N High Cholesterol Y Headaches N Fibromyalgia N Kidney Disease N Heart Problems N Kidney or Bladder Problems N Thyroid Problems N GI Problems N Eating Disorder N Anemia N Art (IVF or FET) N Psychiatric Illness N Ovarian Cancer N Diabetes N Pulmonary (TB, Asthma) N Hepatitis/Liver Disease N No Past Medical History N Eczema N Urinary Tract Infection N Abuse/Domestic Violence N Asthma N Trauma/Violence N Depression/ depression Y Heart Disease N Pre-Eclampsia N Hypertension N Osteoporosis N Thrombophilias N Gynecological History Statement/Question Response Abnormal Pap Y Flow Light Date of Last Mammogram 04/17/2024 N Was last menstrual period normal N STIs/STDs N HPV Vaccine N Duration of Flow (days) 7 Current Control Method Ablation Age at First Child 24 Are cycles usually normal Y Frequency of Cycle (Q days) 26 Sexually Active? Y Menses Monthly Y Age of first menstrual cycle 10 Date of Last Pap Smear 10/13/2023 Sexual Problems? N LMP Approximate N Obstetrics History GPAL:G 2 P 2 0 0 2 Type Value Full Term 2 Living 2 Total 2 Past Encounters Encounter ID Performer Location Encounter Start Date Encounter Closed Date Diagnosis/Indication Diagnosis SNOMED-CT Code Diagnosis ICD10 Code Diagnosis Note [id number] Nazia Hall [facility] [address] [address] 08/25/2020 09:24:09 08/25/2020 10:17:34 Gynecologic examination [id number] Z01.419 Suggested Calcium with Vitamin D 1200-1500m g daily. Patient advised to get an annual flu shot in the fall and she could obtain at [facility] or [facility] care clinic. Also to obtain TDap vaccinatio n if you have not had one in the last 10 years. Recommend yearly mammograms . Encouraged monthly self breast exams. Encourage safe sexual practices, to use condoms and limit partners if not already in a monogamous relationsh ip. Engage in daily exercise of low impact aerobic exercise 45-60 minutes 4-5 times weekly. Avoid tobacco and illicit drugs as well as using moderation with alcohol intake less than 1-2 8 oz beverages daily. This lifestyle behavior pattern will lead to less health conditions and longer life span. If BMI greater than 25 weight watchers or dietary consult advised. All questions have been answered. Patient appears to understand informatio n, but if you have any questions please call or respond to this email. Pap/hpv wnl 2019 Norm pap/hpv hx x 20+yrs mammo ordered Happy on BC pill RF sent x 1yr [id number] Nazia Hall , [facility] [address] [address] 08/27/2021 16:10:34 08/27/2021 16:56:55 Gynecologic examination [id number] Z01.419 Suggested Calcium with Vitamin D 1200-1500m g daily. Patient advised to get an annual flu shot in the fall and she could obtain at [facility] or [facility] care clinic. Also to obtain TDap vaccinatio n if you have not had one in the last 10 years. Recommend yearly mammograms . Encouraged monthly self breast exams. Encourage safe sexual practices, to use condoms and limit partners if not already in a monogamous relationsh ip. Engage in daily exercise of low impact aerobic exercise 45-60 minutes 4-5 times weekly. Avoid tobacco and illicit drugs as well as using moderation with alcohol intake less than 1-2 8 oz beverages daily. This lifestyle behavior pattern will lead to less health conditions and longer life span. If BMI greater than 25 weight watchers or dietary consult advised. All questions have been answered. Patient appears to understand informatio n, but if you have any questions please call or respond to this email. Pap/hpv wnl 2020 Norm pap/hpv hx x 20+yrs mammo ordered Happy on BC pill RF sent x 1yr Contracept ion care management [id number] Z30.9 Happy on OCPRF sent x 1yr [id number] Nazia [facility] [address] [address] 09/07/2022 16:30:16 09/07/2022 17:22:27 Gynecologic examination [id number] Z01.419 Suggested Calcium with Vitamin D 1200-1500m g daily. Patient advised to get an annual flu shot in the fall and she could obtain at [facility] or [facility]. Also to obtain TDap vaccinatio n if you have not had one in the last 10 years. Recommend yearly mammograms . Encouraged monthly self breast exams. Encourage safe sexual practices, to use condoms and limit partners if not already in a monogamous relationsh ip. Engage in daily exercise of low impact aerobic exercise 45-60 minutes 4-5 times weekly. Avoid tobacco and illicit drugs as well as using moderation with alcohol intake less than 1-2 8 oz beverages daily. This lifestyle behavior pattern will lead to less health conditions and longer life span. If BMI greater than 25 weight watchers or dietary consult advised. All questions have been answered. Patient appears to understand informatio n, but if you have any questions please call or respond to this email.Pap/ hpv q3yrs unless otherwise indicatedS TD Screen declinedGe netic Screen discussedC olon Screen PCPDexa Screen naRoutine Labs PCP/Specia listMammo ordered Screening mammography 24 690016 Z12.31 Contracept ion care management [id number] Z30.9 Happy on OCPRF sent x 1yr [id number] Nazia Hall [facility] [address],[place] [address] 10/13/2023 10:47:42 10/13/2023 11:43:58 Gynecologic examination [id number] Z01.419 Suggested Calcium with Vitamin D 1200-1500m g daily. Patient advised to get an annual flu shot in the fall and she could obtain at [facility] or [facility] clinic. Also to obtain TDap vaccinatio n if you have not had one in the last 10 years. Recommend yearly mammograms . Encouraged monthly self breast exams. Encourage safe sexual practices, to use condoms and limit partners if not already in a monogamous relationsh ip. Engage in daily exercise of low impact aerobic exercise 45-60 minutes 4-5 times weekly. Avoid tobacco and illicit drugs as well as using moderation with alcohol intake less than 1-2 8 oz beverages daily. This lifestyle behavior pattern will lead to less health conditions and longer life span. If BMI greater than 25 weight watchers or dietary consult advised. All questions have been answered. Patient appears to understand informatio n, but if you have any questions please call or respond to this email.Pap/ hpv sentSTD Screen sentGeneti c Screen discussedC olon Screen PCPDexa Screen naRoutine Labs PCP/Specia listMammo ordered/fa xed Menorrhagia [id number] N9 2.0 US orderedEnd ometrial ablation consult to be scheduledN ot interested in any further Hormonal options per pt.Wants to get off her OCP Screening mammography 24 [id number] Z12.31 [id number] FARIDA HOU MD [facility] [address],[place] [address] 10/31/2023 10:03:13 11/01/2023 11:10:19 Abnormal uterine bleeding [id number] 9100 N93.9 - likely perimenopa usal, need to r/o precancero us or cancerous etiology- abnormal bleeding x5 months on OCPs- pelvic US ordered for tomorrow- Discussed r/b of endometria l ablation including failure to improve periods, infection, bleeding and injury to surroundin g structures - Discussed need for contracept ion with ablation due to high risk of poor outcomes if occurs after ablation; patient has completed childbeari ng and would like to undergo bilateral salpingect lorene. Discussed permanence of procedure and patient voices understand ing.- Needs EMB, will scheduled ablation and bilateral salpingect lorene to follow [id number] Precious Miguel [facility] [address],[place] [address] 11/01/2023 12:14:49 11/01/2023 13:13:30 Abnormal uterine bleeding [id number] 9100 N93.9 [id number] FARIDA HOU MD [facility] [address],[place] [address] 11/07/2023 14:16:40 11/07/2023 15:50:25 Abnormal uterine bleeding [id number] 9100 N93.9 - likely perimenopa usal, need to r/o precancero us or cancerous etiology- abnormal bleeding x5 months on OCPs- pelvic US wnl- Discussed r/b of endometria l ablation including failure to improve periods, infection, bleeding and injury to surroundin g structures - Discussed need for contracept ion with ablation due to high risk of poor outcomes if occurs after ablation; patient has completed childbeari ng and would like to undergo bilateral salpingect loerne. Discussed permanence of procedure and patient voices understand ing.- EMB performed, patient tolerated well [id number] FARIDA HOU MD [facility] [address],[place] [address] 12/13/2023 17:35:41 12/14/2023 06:11:05 Menorrhagia [id number] N92.0 - likely perimenopa usal, EMB negative for malignancy or hyperplasi a- discussed r/b of management options including expectant vs medical vs surgical management - patient desires surgical management with endometria l ablation and bilateral salpingect lorene Sterilizat ion requested [id number] Z30.2 - currently on OCPs, discussed continued need for contracept ion after endometria l ablation- patient desires bilateral sterilizat ion at time of endometria l ablation [id number] FARIDA HOU MD [facility] [address],[place] [address] 01/06/2024 09:15:09 01/06/2024 11:11:59 Menorrhagia [id number] N92.0 - likely perimenopa usal, EMB negative for malignancy or hyperplasi a- attempted endometria l ablation however unsuccessf ul due to uterine perforatio n- discussed reattempti ng endometria l ablation in 3 months after perforatio n heals. Patient desires to move forward with ablation again. r/b/a discussed- will send Rx for aygestin to control bleeding until time of ablation Postoperative care [id number] Z48.89 - s/p [facility] 12/29- meeting post op milestones - no activity restrictio ns [id number] Willie Pollard MD [facility] [address],[place] [address] 05/04/2024 16:03:18 05/05/2024 10:41:35 Menorrhagia [id number] N92.0 this patient is a 43-year-ol d female presents for post up follow-up on menorrhagi a. She returns after after an endometria l ablation. She underwent a neutral ablation that was performed by Dr. Hou. She has no complaints . She has no foul-smell ing discharge. She denies any nausea, vomiting, fever, chills. She denies any foul-smell ing vaginal discharge. Health Concerns Section Related Observation LastModified by Organization Detai ls LastModified Time None Recorded Concern Status LastModified by Organization Details LastModified Time None Recorded Advance Directives Directive N: Payers Encounter Date Sequence Insurance Name Policy Number Policy Horvath Covered Member ID Horvath Member ID Guarantor Name 11/01/2023 1 [place] [id number] Mirza [facility] [id number] 11/07/2023 1 [place] [id number] Mirza [facility] [id number] [facility] 12/13/2023 1 [place] [id number] Mirza [facility] [id number] [facility] 01/06/2024 1 [place] [id number] Mirza [facility] [id number] [address] [place] [address] 05/04/2024 1 [place] [id number] [facility] [id number] [facility] Notes Date Note Type Note Provider Name and Address Organization Details Recorded Time 11/07/2023 text/html Patient presents for EMB indicated for abnormal uterine bleeding on OCPs x 5 months. Would like endometrial ablation and tubal ligation. FARIDA HOU MD [address], [place], [address], [facility] 11/07/2023 15:45:09 12/13/2023 text/html Patient presents for pre-operative consultation. Hx of menorrhagia, x7 months on OCPs. EMB wnl, no evidence of hyperplasia or malignancy. Discussed management options previously and patient would like to proceed with bilateral salpingectomy and endometrial ablation. FARIDA HOU MD [address], [place], [address], [facility] 12/13/2023 23:03:16 01/06/2024 text/html S/p lap bilatera l salpingectomy with attempted endometrial ablation on 12/29. Ablation aborted after fundal uterine perforation found. Patient doing well, no complaints. Pain well controlled. Tolerating general diet. Denies nausea or vomiting. No shortness of breath or chest pain. Ambulating. Minimal spotting. FARIDA HOU MD [address], [place], [address], [facility] 01/06/2024 11:05:13 05/04/2024 text/html this patient is a 43-year-old female presents for post up follow-up after an endometrial ablation. She underwent a neutral ablation that was performed by Dr. Hou. She has no complaints. She has no foul-smelling discharge. She denies any nausea, vomiting, fever, chills. She denies any foul-smelling vaginal discharge. Willie Pollard MD [address], [place], [address], [facility] 05/04/2024 17:28:39 OBGyn Episode Ob Episode Information Episode Created Date Number of Fetuses Patient Bloodtype Patient rh Status Prepregnancy Weight lbs Domestic Partner Domestic Partner Phone Father Name Silk Screen Layout Drafter Status 08/23/19 21 1 CLOSED Fetus Data First Name Last Name Admitted to NICU Weight (g) Sex Living Outcome Pediatric Complications Fetus ID Race Codes Race Delivery Type 3345.24 1 F Full Term 7168 Vaginal Delivery Chase Calculation Initial Chase Date Initial Exam Date Initial Exam Provider Initial Ultrasound Date Last Menstrual Period Date Ultra Sound Weeks Gestation 0 Eighteen To Twenty Week Chase Update Ultra Sound Date Fundal Height At Umbil Quickening Date Ultra Sound Latest Weeks Gestation Final Chase Confirmed By Final Chase Confirmed Date Final Chase Date Ultra Sound Latest Days Gestation 0 0 Menstrual History Last Menstrual Date Menses Monthly On Bcp Conception Prior Menses Frequency Hcg Plus Date Menarche Onset Age Delivery Information Delivery Date Delivery Type Labor Anesthesia Weeks Gestation Incision Type Labor Labor Length Hrs Delivered By Post Complications Tubal Sterilization Discharge Date Comments 5 39 Discharge Information Feeding Method Contraceptive Method Maternal HG B and HCT Levels Ob Episode Information Episode Created Date Number of Fetuses Patient Bloodtype Patient rh Status Prepregnancy Weight lbs Domestic Partner Domestic Partner Phone Father Name Silk Screen Layout Drafter Status 08/23/19 21 1 CLOSED Fetus Data First Name Last Name Admitted to NICU Weight (g) Sex Living Outcome Pediatric Complications Fetus ID Race Codes Race Delivery Type 4365.82 3 M Full Term 7167 Vaginal Delivery Chase Calculation Initial Chase Date Initial Exam Date Initial Exam Provider Initial Ultrasound Date Last Menstrual Period Date Ultra Sound Weeks Gestation 0 Eighteen To Twenty Week Chase Update Ultra Sound Date Fundal Height At Umbil Quickening Date Ultra Sound Latest Weeks Gestation Final Chase Confirmed By Final Chase Confirmed Date Final Chase Date Ultra Sound Latest Days Gestation 0 0 Menstrual History Last Menstrual Date Menses Monthly On Bcp Conception Prior Menses Frequency Hcg Plus Date Menarche Onset Age Delivery Information Delivery Date Delivery Type Labor Anesthesia Weeks Gestation Incision Type Labor Labor Length Hrs Delivered By Post Complications Tubal Sterilization Discharge Date Comments 8 39 Discharge Information Feeding Method Contraceptive Method Maternal HG B and HCT Levels
--- OUTSIDE RECORDS SUMMARY | 2024-11-23 00:19 | XMS_ITS | Encounter Summary ---
Author Organization [facility] Address [address] [facility] [place] [address] Care Team Providers Care Senior Software Engineering Manager Name Role Phone Andre Aden MD Primary Care Provider [phone] Encounter Details Date Type Department Care Team (Late st Contact Info) Description 06/10/2022 Telephone [facility] [address] [place] [address], [place] [id number] Christiano Stokes MD [address] [place] [address] [address] [place] [address] Social History Tobacco Use Types [...] be seen sooner. Patient Call Back number: [phone] documented in this encounter Plan of Treatment Upcoming Encounters Date Type Department Care Team (Late st Contact Info) Description 12/05/2024 3:20 PM CDT Office Visit [facility] - Dermatology [address] [facility] [facility], [place] [address] Christiano Stokes MD [address] [place] [address] [address] [place] [address] documented as of this encounter Visit Diagnoses Not on filedocumented in this encounter Care Teams Senior Software Engineering Manager Relationship Specialty Start Date End Date Andre Aden MD [address] [place] [address] PCP - General 05/31/18 documented as of this encounter
--- OUTSIDE RECORDS SUMMARY | 2024-11-23 00:19 | XMS_ITS | Encounter Summary ---
Author Organization [facility] Address [address] [place] [address] Phone Care Team Providers Care Station Baggage Porter Name Role Phone Andre Aden MD Primary Care Provider Paco Rivas MD Unavailable [phone] Encounter Details Date Type Department Care Team (Late st Contact Info) Description 10/22/2024 Results Follow-Up [facility] [address] [place] [address] Sandi Jose PA [address] [place] [address] Social History Tobacco Use Types Packs/Day Years Used Date Smoking Tobacco: Never Comments Unknown Sex and Gender Information Value Date Recorded Sex Assigned at Not on file Legal Sex Female 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
[2024-11-23 10:05] VITALS: BP 121/78; PULSE 83; RESP 20; TEMP 36.1; O2SAT 97; BMI 44.8
--- NOTE | 2024-11-23 10:05 | PM.HPGS ---
History of Present Illness History of Present Illness Consent: Risks, benefits, and alternatives have been discussed and questions answered. Patient agrees to proceed with procedure. Chief complaint: Screening Narrative: Evelin Brizuela is a 43 year old female here for first screening colonoscopy Review of Systems Review of Systems: All systems reviewed & are unremarkable except as noted in HPI and below PMFSH Past Medical History Medical History (Updated 11/23/24 @ 10:10 by Guanaco Simpson MD) Colon cancer screening HTN (hypertension) Ankylosing spondylitis Anxiety Depression Surgical History Surgical History History of tonsillectomy Family History Family History Father Family history of hypercholesterolemia Hypertension Patient's father is in good health Family history of arthritis Melanoma Sibling Hypertension Patient's sister is in good health Mother Patient's mother is in good health Social History Social History Social History: Smoking status: Never smoker Second hand tobacco smoke exposure: No Alcohol intake: current Drinks per week: 6 Substance use: never Substance use type: does not use Do You Feel Safe in your Home?: Yes Lack of Transportation: No Lack of Food: Never True Current Housing: I Have Housing Difficulty Paying Gas/Electric Bills: No Difficulty Paying for Meds: No Currently Unemployed: No Education: Master's Degree or Higher Difficulty w/ Childcare or Family Care: No Living arrangements: with family Occupation/Education: occupation Gender identity (if verbalized by the patient): Female Sexual Orientation (if Verbalized by the Patient): Straight or Heterosexual Spiritual care concerns: No Meds Home Medications and Allergies Home Medications ?Medication ?Instructions ?Recorded ?Confirmed ?Type Daily Multivitamin 1 tablet PO DAILY 12/22/23 11/23/24 History indomethacin 75 mg 75 mg PO BID 12/22/23 08/10/24 History capsule,extended release tramadol 50 mg tablet 50 mg PO DAILY PRN Pain 12/22/23 11/15/24 History cyclobenzaprine 5 mg tablet 5 mg PO TID PRN Spasms 03/19/24 08/10/24 History magnesium 250 mg tablet 250 mg PO BID 04/10/24 11/23/24 History sulfasalazine 500 mg 1,500 mg PO DAILY 04/10/24 11/23/24 History tablet,delayed release omeprazole 40 mg capsule,delayed 40 mg PO DAILY #30 caps 08/28/24 11/23/24 Rx release escitalopram oxalate 20 mg tablet 20 mg PO DAILY #90 tabs 09/26/24 11/15/24 Rx (Lexapro) valsartan 160 mg tablet See Rx Instructions .Route 10/18/24 11/23/24 Rx .COMPLEX #90 tabs cetirizine 10 mg tablet (24Hour 5 mg PO DAILY PRN allergy symptoms 11/15/24 11/23/24 History Allergy) Allergies Allergy/AdvReac Type Severity Reaction Status Date / Time promethazine Allergy Mild rash and Verified 11/15/24 14:28 vomiting azathioprine AdvReac Severe possible Verified 11/15/24 14:28 pancreatitis LORRAINE Inhibitors AdvReac Mild cough Verified 11/15/24 14:28 Exam Const: General: comfortable and no acute distress HENMT: Face/Nose/Sinus: Normal nares present Eyes: General: appearance normal, both eyes and all related structures Neck: Neck: no JVD Resp: Auscultation: clear to auscultation bilaterally Cardio: Rate: regular rate Rhythm: regular rhythm GI: Inspection: non-distended GI Palp: Yes Soft to palpation Skin: General skin exam: normal color Neuro: General: gait normal Speech: normal speech Extrem: General: normal to inspection Psych: Mental Status: mental status grossly normal Assessment and Plan Assessment and plan (1) Colon cancer screening: Code(s): Z12.11 - Encounter for screening for malignant neoplasm of colon Status: Acute Assessment and Plan: colonoscopy
--- NOTE | 2024-11-23 10:08 | WPDANESEPPF ---
Anes - Initial Pre Proc Eval Procedure: Operation Date: 11/23/24 13:00 Proposed Procedures p Screening Colonoscopy - Guanaco Simpson MD Date/Time: 11/23/24 10:08 Surgeon: Guanaco Simpson MD Pre Op Diagnosis: Screening Patient Data Age: 43 Gender: F Height: 1.7 m Weight: 129.9 kg Last Vital Signs Temp 36.1 C L 11/23/24 10:05 Pulse 83 11/23/24 10:05 Resp 20 11/23/24 10:05 BP 121/78 11/23/24 10:05 Pulse Ox 97 11/23/24 10:05 O2 Del Method Room Air 11/23/24 10:05 Allergies Allergy/AdvReac Type Severity Reaction Status Date / Time promethazine Allergy Mild rash and Verified 11/15/24 14:28 vomiting azathioprine AdvReac Severe possible Verified 11/15/24 14:28 pancreatitis LORRAINE Inhibitors AdvReac Mild cough Verified 11/15/24 14:28 Home Medications ?Medication ?Instructions ?Recorded ?Confirmed ?Type Daily Multivitamin 1 tablet PO DAILY 12/22/23 11/23/24 History indomethacin 75 mg 75 mg PO BID 12/22/23 08/10/24 History capsule,extended release tramadol 50 mg tablet 50 mg PO DAILY PRN Pain 12/22/23 11/15/24 History cyclobenzaprine 5 mg tablet 5 mg PO TID PRN Spasms 03/19/24 08/10/24 History magnesium 250 mg tablet 250 mg PO BID 04/10/24 11/23/24 History sulfasalazine 500 mg 1,500 mg PO DAILY 04/10/24 11/23/24 History tablet,delayed release omeprazole 40 mg capsule,delayed 40 mg PO DAILY #30 caps 08/28/24 11/23/24 Rx release escitalopram oxalate 20 mg tablet 20 mg PO DAILY #90 tabs 09/26/24 11/15/24 Rx (Lexapro) valsartan 160 mg tablet See Rx Instructions .Route 10/18/24 11/23/24 Rx .COMPLEX #90 tabs cetirizine 10 mg tablet (24Hour 5 mg PO DAILY PRN allergy symptoms 11/15/24 11/23/24 History Allergy) Patient hx anesthesia problems: none Family hx anesthesia problems: none Results Review: All pre-operative results and documents have been reviewed as part of the pre-operative evaluation. [facility] Past Medical History Medical History HTN (hypertension) Ankylosing spondylitis Anxiety Depression Surgical History Surgical History History of tonsillectomy Family History Family History Father Family history of hypercholesterolemia Hypertension Patient's father is in good health Family history of arthritis Melanoma Sibling Hypertension Patient's sister is in good health Mother Patient's mother is in good health Social History Social History Social History: Smoking status: Never smoker Second hand tobacco smoke exposure: No Alcohol intake: current Drinks per week: 6 Substance use: never Substance use type: does not use Do You Feel Safe in your Home?: Yes Lack of Transportation: No Lack of Food: Never True Current Housing: I Have Housing Difficulty Paying Gas/Electric Bills: No Difficulty Paying for Meds: No Currently Unemployed: No Education: Master's Degree or Higher Difficulty w/ Childcare or Family Care: No Living arrangements: with family Occupation/Education: occupation Gender identity (if verbalized by the patient): Female Sexual Orientation (if Verbalized by the Patient): Straight or Heterosexual Spiritual care concerns: No Anes - Eval Final PreProcedure Day of Procedure 11/23/24 10:08 Patient weight: morbidly obese Heart: regular rate and rhythm Lungs: clear to auscultation Airway: Mallampati scale class III Neurological: alert and oriented Last oral intake: >/= 8 hours ASA classification: III Emergent: no Anesthetic plan: proceed Anesthesia type and monitoring: general GIVS and standard monitoring Results Review: All pre-operative results and documents have been reviewed as part of the pre-operative evaluation. Informed Consent: The patient's anesthetic plan and its attendant risks and benefits were discussed with the patient/family/POA. Questions were solicited and answers provided to the satisfaction of the patient/family/POA.
[2024-11-23] MEDS: LACTATED RINGERS 1,000 ML 150 ML IV CONT (10:13)
[2024-11-23 10:30] VITALS: BP 125/85; PULSE 80; RESP 16; O2SAT 97
[2024-11-23 10:40] VITALS: BP 129/75; PULSE 67; RESP 17; O2SAT 97
[2024-11-23 10:50] VITALS: BP 135/72; PULSE 65; RESP 18; O2SAT 98
== END 2024-11-23 10:52 | disposition home or self-care (01) ==
PROVIDERS: PCP Family Medicine; Referring Provider Family Medicine; Visit Provider Internal Medicine Gastroenterology
PROC: 0DJD8ZZ Inspection of Lower Intestinal Tract, Via Natural or Artificial Opening Endoscopic (ICD-10-PCS; CPT 45378; principal; 2024-11-23 13:00)
DX: Z12.11 Encounter for screening for malignant neoplasm of colon (principal); K64.8 Other hemorrhoids; I10 Essential (primary) hypertension; F41.9 Anxiety disorder, unspecified; F32.A Depression, unspecified; E66.01 Morbid (severe) obesity due to excess calories; Z68.41 Body mass index [BMI] 40.0-44.9, adult; Z79.891 Long term (current) use of opiate analgesic; Z98.890 Other specified postprocedural states; Z80.8 Family history of malignant neoplasm of other organs or systems
CPT/HCPCS: 45378; J2704; J7120

== ENCOUNTER 2025-07-16 15:07 | Outpatient (CLI) | payer BC, SELFPAY ==
--- NOTE | ~2025-07-16 | MM_ITS ---
EXAMINATION: MM screening amita BI w abe HISTORY: Screening. TECHNIQUE: Craniocaudal and mediolateral oblique 3-D tomosynthesis images were obtained and synthetic 2-D images were generated. CAD analysis was submitted and interpreted. COMPARISON: 2023, 2022, and 2021. BREAST PARENCHYMAL COMPOSITION: Not Dense: The breasts are almost entirely fatty FINDINGS: No suspicious masses are seen. There are no suspicious calcifications. No unexplained architectural distortion is seen. There are no skin or nipple abnormalities identified. There is no adenopathy seen on the images submitted. IMPRESSION: No mammographic evidence to suggest malignancy is seen. The patient may return to screening mammography as per ACR guidelines. BI-RADS 1 - Negative. Reviewed, dictated and finalized at location C. R PIPE LAYER HELPER
== END 2025-07-16 15:08 | disposition home or self-care (01) ==
LOC: MICIMG 15:09
PROVIDERS: PCP Family Medicine; Visit Provider Obstetrics & Gynecology
DX: Z12.31 Encounter for screening mammogram for malignant neoplasm of breast (principal)
CPT/HCPCS: 77063; 77067